=== PATIENT | male | born 1960 | race Caucasian/White ===

== ENCOUNTER 2019-03-02 01:31 | Inpatient (IN) | payer OTHER ==
[~2019-03-02] VITALS: Ht 172.7 cm; Wt 63.7 kg
--- NOTE | 2019-03-02 01:47 | PHYS DOC ---
Adult General Chief Complaint Chief Complaint: CHEST PAIN HPI HPI Patient is a 58-year-old male who presents with complaint of chest pain that started a little over 30 minutes prior to his arrival. Patient states that he was sitting down watching TV with onset of pain. He states the pain was primarily in the center of his chest and radiated to his left axilla and down his arm. He states he became a little bit nauseated and very diaphoretic. He states that at its worst the pain was an 8 out of 10. He states that currently the pain is about a 3 or 4 out of 10. He is not aware of any exacerbating factors and denies alleviating factors. Patient denies any cardiac history but does admit to family history of heart disease. Patient does indicate that he has had numerous episodes that have been much more mild in the past, making it difficult for him to sleep at night. He states that those episodes usually will clear up spontaneously within just a few minutes. Tonight was much more severe.[] Review of Systems Review of Systems Constitutional: Denies fever or chills [] Respiratory: Denies cough or shortness of breath [] Cardiovascular: No additional information not addressed in HPI [] GI: Denies abdominal pain, vomiting or diarrhea [] Musculoskeletal: Denies back pain or joint pain [] Integument: Denies rash or skin lesions [] Neurologic: Denies headache, focal weakness or sensory changes [] All other systems were reviewed and found to be within normal limits, except as documented in this note. Current Medications Current Medications Current Medications Medications (Trade) Dose Ordered Sig/Tobias Start Time Stop Time Status Last Admin Dose Admin Aspirin (Children'S Aspirin) 324 mg 1X ONCE 03/02/19 02:15 03/02/19 02:16 DC 03/02/19 02:20 324 MG Nitroglycerin (Nitrostat) 0.4 mg PRN Q5MIN PRN 03/02/19 02:00 03/03/19 01:59 03/02/19 02:21 0.4 MG Sodium Chloride 1,000 ml @ 1,000 mls/hr Q1H 03/02/19 02:00 03/02/19 02:59 DC 03/02/19 02:21 1,000 MLS/HR Allergies Allergies Allergies Coded Allergies Type Severity Reaction Last Updated Verified No Known Drug Allergies 03/02/19 No Physical Exam Physical Exam Constitutional: Well developed, well nourished, no acute distress, non-toxic appearance. [] HENT: Normocephalic, atraumatic, bilateral external ears normal, oropharynx moist, no oral exudates, nose normal. [] Eyes: PERRLA, EOMI, conjunctiva normal, no discharge. [] Neck: Normal range of motion, no tenderness, supple, no stridor. [] Cardiovascular: Regular rate and rhythm[] Lungs & Thorax: Bilateral breath sounds clear to auscultation [] Abdomen: Bowel sounds normal, soft. [] Skin: Warm, dry, no erythema, no rash. [] Extremities: No tenderness, no cyanosis, no clubbing, ROM intact, no edema. [] Neurologic: Alert and oriented X 3, no focal deficits noted. [] Current Patient Data Vital Signs Vital Signs Date Time Temp Pulse Resp B/P (MAP) Pulse Ox O2 Delivery O2 Flow Rate FiO2 03/02/19 02:21 59 164/81 03/02/19 01:57 98.0 16 100 Room Air 98.0 Lab Values Laboratory Tests Test 03/02/19 01:45 White Blood Count 11.8 x10^3/uL (4.0-11.0) H Red Blood Count 5.10 x10^6/uL (4.30-5.70) Hemoglobin 16.1 g/dL (13.0-17.5) Hematocrit 47.8 % (39.0-53.0) Mean Corpuscular Volume 94 fL (79-100) Mean Corpuscular Hemoglobin 32 pg (25-35) Mean Corpuscular Hemoglobin Concent 34 g/dL (31-37) Red Cell Distribution Width 13.4 % (11.5-14.5) Platelet Count 170 x10^3/uL (140-400) Neutrophils (%) (Auto) 61 % (31-73) Lymphocytes (%) (Auto) 30 % (24-48) Monocytes (%) (Auto) 7 % (0-9) Eosinophils (%) (Auto) 2 % (0-3) Basophils (%) (Auto) 1 % (0-3) Neutrophils # (Auto) 7.1 x10^3/uL (1.8-7.7) Lymphocytes # (Auto) 3.5 x10^3/uL (1.0-4.8) Monocytes # (Auto) 0.8 x10^3/uL (0.0-1.1) Eosinophils # (Auto) 0.2 x10^3/uL (0.0-0.7) Basophils # (Auto) 0.1 x10^3/uL (0.0-0.2) Sodium Level 148 mmol/L (136-145) H Potassium Level 4.1 mmol/L (3.5-5.1) Chloride Level 108 mmol/L (98-107) H Carbon Dioxide Level 27 mmol/L (21-32) Anion Gap 13 (6-14) Blood Urea Nitrogen 24 mg/dL (8-26) Creatinine 1.9 mg/dL (0.7-1.3) H Estimated GFR (Cockcroft-Gault) 36.5 BUN/Creatinine Ratio 13 (6-20) Glucose Level 215 mg/dL (70-99) H Calcium Level 9.1 mg/dL (8.5-10.1) Magnesium Level 1.8 mg/dL (1.8-2.4) Total Bilirubin 0.4 mg/dL (0.2-1.0) Aspartate Amino Transferase (AST) 13 U/L (15-37) L Alanine Aminotransferase (ALT) 23 U/L (16-63) Alkaline Phosphatase 84 U/L (46-116) Troponin I Quantitative < 0.017 ng/mL (0.000-0.055) WT-Kgk-M-Type Natriuretic Peptide 316 pg/mL (0-124) H Total Protein 6.9 g/dL (6.4-8.2) Albumin 3.7 g/dL (3.4-5.0) Albumin/Globulin Ratio 1.2 (1.0-1.7) Lipase 141 U/L (73-393) Laboratory Tests 03/02/19 01:45 Laboratory Tests 03/02/19 01:45 EKG EKG [] Interpretation Time: EKG demonstrates normal sinus rhythm with rate of 64. Radiology/Procedures Radiology/Procedures [] Course & Med Decision Making Course & Med Decision Making Pertinent Labs and Imaging studies reviewed. (See chart for details) [] Dragon Disclaimer Dragon Disclaimer This electronic medical record was generated, in whole or in part, using a voice recognition dictation system. Departure Departure Impression: Primary Impression: Unstable angina Disposition: ADMITTED INPATIENT Admitting Physician: DEYVI Condition: IMPROVED DENNIS CARRANZA Jr. DO Mar 02, 2019 01:47
[2019-03-02] MEDS ORDERED: NITROGLYCERIN SUBLINGUAL 0.4 MG BOTTLE OF 25. SL PRN ×2 (02:00→03:15)
[2019-03-02] MEDS ORDERED: IV NORMAL SALINE 1000ML BAG 1,000 ML IV SCH (02:00)
[2019-03-02 02:05] LABS: BASO # 0.1 x10^3/uL (0.0-0.2); BASO % 1 % (0-3); EOS # 0.2 x10^3/uL (0.0-0.7); EOS % 2 % (0-3); HEMATOCRIT 47.8 % (39.0-53.0); HEMOGLOBIN 16.1 g/dL (13.0-17.5); LYMPH # 3.5 x10^3/uL (1.0-4.8); LYMPH % 30 % (24-48); MEAN CORPUSCULAR HEMOGLOBIN 32 pg (25-35); MEAN CORPUSCULAR HGB CONC 34 g/dL (31-37); MEAN CORPUSCULAR VOLUME 94 fL (79-100); MONO # 0.8 x10^3/uL (0.0-1.1); MONO % 7 % (0-9); NEUT # 7.1 x10^3/uL (1.8-7.7); NEUT % 61 % (31-73); PLATELET COUNT 170 x10^3/uL (140-400); RED CELL DISTRIBUTION WIDTH 13.4 % (11.5-14.5); WHITE BLOOD COUNT 11.8 x10^3/uL (4.0-11.0)
[2019-03-02] MEDS ORDERED: ASPIRIN CHEWABLE 81 MG TABLET. PO ONE (02:15)
[2019-03-02 02:32] LABS: CALCIUM 9.1 mg/dL (8.5-10.1); CREATININE 1.9 mg/dL (0.7-1.3); GFR 36.5; POTASSIUM 4.1 mmol/L (3.5-5.1)
[2019-03-02 02:38] LABS: ALBUMIN 3.7 g/dL (3.4-5.0); ALBUMIN/GLOBULIN RATIO 1.2 (1.0-1.7); MAGNESIUM 1.8 mg/dL (1.8-2.4); TOTAL BILIRUBIN 0.4 mg/dL (0.2-1.0); TOTAL PROTEIN 6.9 g/dL (6.4-8.2)
[2019-03-02] MEDS ORDERED: ONDANSETRON PF 4 MG/2 ML VIAL. IV PRN (03:15)
[2019-03-02] MEDS ORDERED: MORPHINE SULFATE 2 MG/ML VIAL. IV PRN (03:15)
[2019-03-02] MEDS: IV NORMAL SALINE 1000ML BAG 1,000 ML IV SCH ×3 (03:15→19:15)
[2019-03-02 04:00] VITALS: BP 147/66
[2019-03-02 07:00] VITALS: BP 134/74
--- NOTE | 2019-03-02 07:35 | RAD ---
AP chest. HISTORY: Chest pain AP view was taken of the chest. Lungs are clear. Heart is normal in size. There is no pleural effusion. IMPRESSION: 1. No acute chest disease. Electronically signed by: Jose Miguel Fang MD (03/02/2019 7:32 AM) [facility]
--- NOTE | 2019-03-02 08:18 | PDOC1 ---
History and Physical Date of Admission Date of Admission DATE: 03/02/19 TIME: 08:15 Identification/Chief Complaint Chief Complaint Chest pain Source Source: Patient History of Present Illness History of Present Illness Mr Blount is a 58-year-old male w/ PMHx smoker, prediabetes, HTN who presents with complaint of chest pain that started a little over 30 minutes prior to his arrival. Patient states that he was sitting down watching TV with onset of pain. He states the pain was primarily in the center of his chest and radiated to his left axilla and down his arm. He states he became a little bit nauseated and very diaphoretic. He states that at its worst the pain was an 8 out of 10. He states that currently the pain is about a 3 or 4 out of 10. He is not aware of any exacerbating factors and denies alleviating factors. Patient denies any cardiac history but does admit to family history of heart disease. Patient does indicate that he has had numerous episodes that have been much more mild in the past, making it difficult for him to sleep at night. He states that those episodes usually will clear up spontaneously within just a few minutes. Last night was much more severe and dissimilar to his prior bouts of dyspepsia. CXR clear, EKG NSR with no concerning ST segment changes. Cr 1.9. WBC 11.8. Glucose 215, initial troponin negative He saw his PCP, had CXR and EKG, treatment for GERD and planned for possible stress testing on an outpatient basis in the near future. He was started on metformin 1.5 weeks ago for prediabetes and he has stopped it as he thought his symptoms were related to metformin use. He does not currently have any chest pain. 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 He did have a mother with CAD and a maternal cousin who is younger who just had stent placement. Past Medical History Cardiovascular: HTN Pulmonary: No pertinent hx GI: No pertinent hx Heme/Onc: No pertinent hx Hepatobiliary: No pertinent hx Psych: No pertinent hx Rheumatologic: No pertinent hx Infectious disease: No pertinent hx ENT: No pertinent hx Renal/: No pertinent hx Endocrine: Other (Prediabetes) Dermatology: No pertinent hx Past Surgical History Past Surgical History: No pertinent history Family History Family History: Coronary Artery Disease Current Problem List Problem List Problems Medical Problems: (1) Unstable angina Status: Acute Current Medications Current Medications Current Medications Aspirin (Children'S Aspirin) 324 mg 1X ONCE PO Last administered on 03/02/19at 02:20; Start 03/02/19 at 02:15; Stop 03/02/19 at 02:16; Status DC Nitroglycerin (Nitrostat) 0.4 mg PRN Q5MIN PRN SL CP RATING > 1/10 Last administered on 03/02/19at 02:21; Start 03/02/19 at 02:00; Stop 03/03/19 at 01:59 Sodium Chloride 1,000 ml @ 1,000 mls/hr Q1H IV Last administered on 03/02/19at 02:21; Start 03/02/19 at 02:00; Stop 03/02/19 at 02:59; Status DC Ondansetron HCl (Zofran) 4 mg PRN Q8HRS PRN IV NAUSEA/VOMITING; Start 03/02/19 at 03:15; Stop 03/03/19 at 03:14 Morphine Sulfate (Morphine Sulfate) 2 mg PRN Q2HR PRN IV PAIN; Start 03/02/19 at 03:15; Stop 03/03/19 at 03:14 Sodium Chloride 1,000 ml @ 125 mls/hr Q8H IV ; Start 03/02/19 at 03:15; Stop 03/03/19 at 03:14 Nitroglycerin (Nitrostat) 0.4 mg PRN Q5MIN PRN SL CHEST PAIN; Start 03/02/19 at 03:15; Stop 03/03/19 at 03:14 Allergies Allergies: Coded Allergies: No Known Drug Allergies (Unverified , 03/02/19) ROS General: No: Chills, Night Sweats, Fatigue, Malaise, Appetite, Other PSYCHOLOGICAL ROS: No: Anxiety, Behavioral Disorder, Concentration difficultie, Decreased libido, Depression, Disorientation, Hallucinations, Hostility, Irritablity, Memory difficulties, Mood Swings, Obsessive thoughts, Physical abuse, Sexual abuse, Sleep disturbances, Suicidal ideation, Other Eyes: No Blurry vision, No Decreased vision, No Double vision, No Dry eyes, No Excessive tearing, No Eye Pain, No Itchy Eyes, No Loss of vision, No Photophobia, No Scotomata, No Uses contacts, No Uses glasses, No Other HEENT: No: Heacaches, Visual Changes, Hearing change, Nasal congestion, Nasal discharge, Oral lesions, Sinus pain, Sore Throat, Epistaxis, Sneezing, Snoring, Tinnitus, Vertigo, Vocal changes, Other ALLERGY AND IMMUNOLOGY: No: Hives, Insect Bite Sensitivity, Itchy/Watery Eyes, Nasal Congestion, Post Nasal Drip, Seasonal Allergies, Other Hematological and Lymphatic: No: Bleeding Problems, Blood Clots, Blood Transfusions, Brusing, Night Sweats, Pallor, Swollen Lymph Nodes, Other ENDOCRINE: No: Breast Changes, Galactorrhea, Hair Pattern Changes, Hot Flashes, Malaise/lethargy, Mood Swings, Palpitations, Polydipsia/polyuria, Skin Changes, Temperature Intolerance, Unexpected Weight Changes, Other Breast: No New/Changing Breast Lumps, No Nipple changes, No Nipple discharge, No Other Respiratory: No: Cough, Hemoptysis, Orthopnea, Pleuritic Pain, Shortness of breath, SOB with excertion, Sputum Changes, Stridor, Tachypnea, Wheezing, Other Cardiovascular: yes Chest Pain, yes Palpitations; No Orthopnea, No Paroxysmal Noc. Dyspnea, No Edema, No Lt Headedness, No Other Gastrointestinal: No Nausea, No Vomiting, No Abdominal Pain, No Diarrhea, No Constipation, No Melena, No Hematochezia, No Other Genitourinary: No Dysuria, No Frequency, No Incontinence, No Hematuria, No Retention, No Discharge, No Urgency, No Pain, No Flank Pain, No Other, No , No , No , No , No , No , No Musculoskeletal: No Gait Disturbance, No Joint Pain, No Joint Stiffness, No Joint Swelling, No Muscle Pain, No Muscular Weakness, No Pain In:, No Swelling In:, No Other Neurological: No Behavorial Changes, No Bowel/Bladder ControlChng, No Confusion, No Dizziness, No Gait Disturbance, No Headaches, No Impaired Coord/balance, No Memory Loss, No Numbness/Tingling, No Seizures, No Speech Problems, No Tremors, No Visual Changes, No Weakness, No Other Skin: No Dry Skin, No Eczema, No Hair Changes, No Lumps, No Mole Changes, No Mottling, No Nail Changes, No Pruritus, No Rash, No Skin Lesion Changes, No Other, No Acne Physical Exam General: Alert, Oriented X3, Cooperative, No acute distress HEENT: Atraumatic, PERRLA, EOMI, Mucous membr. moist/pink Lungs: Clear to auscultation, Normal air movement Abdomen: Normal bowel sounds, Soft, No tenderness, No hepatosplenomegaly, No masses Extremities: No clubbing, No cyanosis, No edema, Normal pulses, No tenderness/swelling Skin: No rashes, No breakdown, No significant lesion Neuro: Normal gait, Normal speech, Strength at 5/5 X4 ext, Normal tone, Sensation intact, Cranial nerves 3-12 NL, Reflexes 2+ Psych/Mental Status: Mental status NL, Mood NL Vitals Vitals Vital Signs Date Time Temp Pulse Resp B/P (MAP) Pulse Ox O2 Delivery O2 Flow Rate FiO2 03/02/19 07:00 98.4 53 18 134/74 (94) 97 Room Air 98.4 Labs Labs Laboratory Tests Test 03/02/19 01:45 03/02/19 06:00 03/02/19 07:45 White Blood Count 11.8 x10^3/uL (4.0-11.0) Red Blood Count 5.10 x10^6/uL (4.30-5.70) Hemoglobin 16.1 g/dL (13.0-17.5) Hematocrit 47.8 % (39.0-53.0) Mean Corpuscular Volume 94 fL (79-100) Mean Corpuscular Hemoglobin 32 pg (25-35) Mean Corpuscular Hemoglobin Concent 34 g/dL (31-37) Red Cell Distribution Width 13.4 % (11.5-14.5) Platelet Count 170 x10^3/uL (140-400) Neutrophils (%) (Auto) 61 % (31-73) Lymphocytes (%) (Auto) 30 % (24-48) Monocytes (%) (Auto) 7 % (0-9) Eosinophils (%) (Auto) 2 % (0-3) Basophils (%) (Auto) 1 % (0-3) Neutrophils # (Auto) 7.1 x10^3/uL (1.8-7.7) Lymphocytes # (Auto) 3.5 x10^3/uL (1.0-4.8) Monocytes # (Auto) 0.8 x10^3/uL (0.0-1.1) Eosinophils # (Auto) 0.2 x10^3/uL (0.0-0.7) Basophils # (Auto) 0.1 x10^3/uL (0.0-0.2) Sodium Level 148 mmol/L (136-145) Potassium Level 4.1 mmol/L (3.5-5.1) Chloride Level 108 mmol/L (98-107) Carbon Dioxide Level 27 mmol/L (21-32) Anion Gap 13 (6-14) Blood Urea Nitrogen 24 mg/dL (8-26) Creatinine 1.9 mg/dL (0.7-1.3) Estimated GFR (Cockcroft-Gault) 36.5 BUN/Creatinine Ratio 13 (6-20) Glucose Level 215 mg/dL (70-99) Calcium Level 9.1 mg/dL (8.5-10.1) Magnesium Level 1.8 mg/dL (1.8-2.4) Total Bilirubin 0.4 mg/dL (0.2-1.0) Aspartate Amino Transf (AST/SGOT) 13 U/L (15-37) Alanine Aminotransferase (ALT/SGPT) 23 U/L (16-63) Alkaline Phosphatase 84 U/L (46-116) Troponin I Quantitative < 0.017 ng/mL (0.000-0.055) 0.055 ng/mL (0.000-0.055) XX-Moi-I-Type Natriuretic Peptide 316 pg/mL (0-124) Total Protein 6.9 g/dL (6.4-8.2) Albumin 3.7 g/dL (3.4-5.0) Albumin/Globulin Ratio 1.2 (1.0-1.7) Lipase 141 U/L (73-393) Glucose (Fingerstick) 120 mg/dL (70-99) Laboratory Tests Test 03/02/19 01:45 03/02/19 06:00 03/02/19 07:45 White Blood Count 11.8 x10^3/uL (4.0-11.0) Red Blood Count 5.10 x10^6/uL (4.30-5.70) Hemoglobin 16.1 g/dL (13.0-17.5) Hematocrit 47.8 % (39.0-53.0) Mean Corpuscular Volume 94 fL (79-100) Mean Corpuscular Hemoglobin 32 pg (25-35) Mean Corpuscular Hemoglobin Concent 34 g/dL (31-37) Red Cell Distribution Width 13.4 % (11.5-14.5) Platelet Count 170 x10^3/uL (140-400) Neutrophils (%) (Auto) 61 % (31-73) Lymphocytes (%) (Auto) 30 % (24-48) Monocytes (%) (Auto) 7 % (0-9) Eosinophils (%) (Auto) 2 % (0-3) Basophils (%) (Auto) 1 % (0-3) Neutrophils # (Auto) 7.1 x10^3/uL (1.8-7.7) Lymphocytes # (Auto) 3.5 x10^3/uL (1.0-4.8) Monocytes # (Auto) 0.8 x10^3/uL (0.0-1.1) Eosinophils # (Auto) 0.2 x10^3/uL (0.0-0.7) Basophils # (Auto) 0.1 x10^3/uL (0.0-0.2) Sodium Level 148 mmol/L (136-145) Potassium Level 4.1 mmol/L (3.5-5.1) Chloride Level 108 mmol/L (98-107) Carbon Dioxide Level 27 mmol/L (21-32) Anion Gap 13 (6-14) Blood Urea Nitrogen 24 mg/dL (8-26) Creatinine 1.9 mg/dL (0.7-1.3) Estimated GFR (Cockcroft-Gault) 36.5 BUN/Creatinine Ratio 13 (6-20) Glucose Level 215 mg/dL (70-99) Calcium Level 9.1 mg/dL (8.5-10.1) Magnesium Level 1.8 mg/dL (1.8-2.4) Total Bilirubin 0.4 mg/dL (0.2-1.0) Aspartate Amino Transf (AST/SGOT) 13 U/L (15-37) Alanine Aminotransferase (ALT/SGPT) 23 U/L (16-63) Alkaline Phosphatase 84 U/L (46-116) Troponin I Quantitative < 0.017 ng/mL (0.000-0.055) 0.055 ng/mL (0.000-0.055) DH-Qjo-E-Type Natriuretic Peptide 316 pg/mL (0-124) Total Protein 6.9 g/dL (6.4-8.2) Albumin 3.7 g/dL (3.4-5.0) Albumin/Globulin Ratio 1.2 (1.0-1.7) Lipase 141 U/L (73-393) Glucose (Fingerstick) 120 mg/dL (70-99) Images Images CXR - No acute chest disease. VTE Prophylaxis Ordered VTE Prophylaxis Devices: Yes VTE Pharmacological Prophylaxi: No Assessment/Plan Assessment/Plan A/P: Chest pain - moderately high risk for unstable angina. Trend trops, NTG prn. ASA. consult cardiology to risk stratify stress testing vs angiography RUIZ - will hydrate. Likely vasomotor nephropathy from diarrhea from recent metformin exposure Hyperglycemia - prediabetes. Hold metformin for RUIZ Leukocytosis - likely reactive, will monitor Smoker - counseled on cessation, nicotine replacement offered Elevated BP - monitor FEN - Cardiac PPX - SCDs FULL CODE Inpatient for RUIZ with chest pain LAURA MCKEON MD Mar 02, 2019 08:18
[2019-03-02 09:08] LABS: CHOLESTEROL/HDL RATIO 5.1
[2019-03-02 11:00] VITALS: BP 113/57
--- NOTE | 2019-03-02 12:45 | CONS ---
DATE OF CONSULTATION: 03/02/2019 REASON FOR CONSULTATION: Chest pain. HISTORY OF PRESENT ILLNESS: The patient is a 58-year-old male with past medical history as noted below, who presents to the hospital in the setting of chest discomfort. He apparently was in his usual state of health and had some significant chest tightness for about 15-20 minutes and called 911 and presented to the ER. Even prior to receiving nitroglycerin in the ER, his chest pain had begun to subside. He apparently has been having intermittent episodes of chest pain with various activities and not necessarily related to exertion over the last several weeks. His primary care doctor felt that it may be gastroesophageal reflux disease versus possible ischemia and there was a plan for possible stress testing on an outpatient basis in the near future. 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 Intermittently, he does have some chest discomfort. At this present time, he denies any chest pain. He is resting comfortably in bed. PAST MEDICAL HISTORY: 1. Mild hypertension. 2. Tobacco abuse. 3. Prediabetes. 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 He smokes half pack a day. He has 1 daughter. He has a girlfriend as well. FAMILY HISTORY: No significant early atherosclerotic coronary artery disease. ALLERGIES: No known drug allergies. CURRENT CARDIOVASCULAR MEDICATIONS: None. REVIEW OF SYSTEMS: Negative for 10 out of 14 systems reviewed, unless otherwise mentioned above in HPI. PHYSICAL EXAMINATION: VITAL SIGNS: Afebrile, 46, 16, 113/57, 97% on room air. GENERAL: He is alert and oriented, no acute distress. HEAD AND NECK: Unremarkable. CARDIAC: Regular rate and rhythm without murmurs, rubs or gallops. LUNGS: Clear to auscultation. ABDOMEN: Soft, nontender. EXTREMITIES: No clubbing, cyanosis or edema. 2+ radial and dorsalis pedis pulses. No carotid bruits. NEUROLOGIC: No focal deficits. MUSCULOSKELETAL: No trauma. DIAGNOSTIC STUDIES: Triglycerides elevated, LDL 40, HDL 28. TSH is within normal limits. Cardiac enzymes are negative x 3. BNP is minimally elevated at 316. Chest x-ray is unremarkable. EKG demonstrates sinus rhythm with nonspecific ST-T wave changes. IMPRESSION: 1. Atypical chest pain, possible underlying unstable angina presentation at this time. 2. Mild hypertension. 3. Tobacco abuse. RECOMMENDATIONS: I had a long discussion with the patient regarding his multiple risk factors and presentation, which is concerning for unstable angina. We discussed the conservative versus aggressive approaches with stress testing versus cardiac catheterization. He will discuss with his family and make decisions further. If he chooses conservative management, we will continue aspirin, statin therapy and given his bradycardia, he will not be able to start on beta jaguar. We will send him home on nitroglycerin p.r.n. We will plan for an expedite stress test in the next 48-72 hours. If he were to choose cardiac catheterization, then we will plan for a cardiac catheterization tomorrow for evaluation of his unstable angina. Thank you for this consultation. SAM HYDE MD DR: PAM/abhay JOB#: [id number] / [id number]
--- NOTE | 2019-03-02 13:34 | EKG ---
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
--- NOTE | 2019-03-02 14:25 | EKG ---
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
[2019-03-02 15:00] VITALS: BP 127/59
[2019-03-02 19:40] VITALS: BP 134/63
[2019-03-02] MEDS ORDERED: METO50TA6 PO (21:54)
[2019-03-02] MEDS ORDERED: LISI1TAB5 PO (21:54)
[2019-03-02 23:15] VITALS: BP 118/59
[2019-03-03] VITALS (10 sets, daily range): BP systolic 134–177; BP diastolic 64–93
[2019-03-03] MEDS ORDERED: ASPIRIN CHEWABLE 81 MG TABLET. PO ONE (07:15)
[2019-03-03] MEDS ORDERED: NITROGLYCERIN SUBLINGUAL 0.4 MG BOTTLE OF 25. SL PRN (07:15)
--- NOTE | 2019-03-03 07:25 | EKG ---
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
[2019-03-03] MEDS ORDERED: IV NORMAL SALINE 500ML BAG 500 ML IV ONE (08:30)
[2019-03-03 09:10] LABS: CALCIUM 8.9 mg/dL (8.5-10.1); CREATININE 1.6 mg/dL (0.7-1.3); GFR 44.5; POTASSIUM 4.1 mmol/L (3.5-5.1)
[2019-03-03] MEDS ORDERED: LIDOCAINE 1% PF 2 ML VIAL. ONE (09:34)
[2019-03-03] MEDS ORDERED: IODIXANOL 320 MG/ML 100 ML VIAL. ONE (09:34)
[2019-03-03] MEDS ORDERED: fentaNYL PF VIAL 100 MCG/2 ML VIAL ONE (10:13)
[2019-03-03] MEDS ORDERED: VERAPAMIL 5 MG/2 ML VIAL. ONE (10:14)
[2019-03-03] MEDS ORDERED: MIDAZOLAM HCL/PF 2 MG/2 ML VIAL. ONE (10:14)
[2019-03-03] MEDS ORDERED: HEPARIN for IV BOLUS 10,000 UNIT/10 ML VIAL. ONE (10:14)
[2019-03-03] MEDS ORDERED: NITROGLYCERIN 200 MCG/2 ML SYRINGE FOR CATH/VASC LAB. ONE ×3 (10:15→10:57)
--- NOTE | 2019-03-03 10:21 | PDOC ---
MODERATE SEDATION ASSESSMENT RISKS/ALTERNATIVES Risks/Alternatives Risks and alternatives of this type of sedation and procedure discussed with: RISK/ALTERNATIVES: Patient H & P ON CHART H & P H & P on chart and reviewed for co-morbid conditions and appropriate labs. H&P ON CHART: Yes STATUS PREG STATUS ASSESSED: N/A MEDS/ALLERGIES REVIEWED Meds/Allergies Reviewed Medications and Allergies including time and route of recently administered narcotics and sedatives. MEDS/ALLERGIES REVIEWED: Yes ASA RATING ASA RATING: II AIRWAY ASSESSMENT Airway Assessment Airway patency, oral function limitations, presence of caps, crowns, dentures, partials, and ability to extend neck assessed. AIRWAY ASSESSMENT: Yes MALLAMPATI SCORE MALLAMPATI SCORE: II PRE-SEDATION ASSESSMENT PRE-SEDATION ASSESSMENT: Yes SAM HYDE MD Mar 03, 2019 10:20
[2019-03-03] MEDS ORDERED: BIVALIRUDIN 250 MG VIAL. IV ONE ×2 (10:34→11:15)
[2019-03-03] MEDS ORDERED: PRASUGREL 10 MG TABLET. ONE (11:04)
[2019-03-03] MEDS ORDERED: LIDOCAINE 1% PF 2 ML VIAL. INJ ONE (11:15)
[2019-03-03] MEDS ORDERED: MIDAZOLAM HCL/PF 2 MG/2 ML VIAL. IV ONE (11:15)
[2019-03-03] MEDS ORDERED: VERAPAMIL 5 MG/2 ML VIAL. IART ONE (11:15)
[2019-03-03] MEDS ORDERED: fentaNYL PF VIAL 100 MCG/2 ML VIAL IV ONE (11:15)
[2019-03-03] MEDS ORDERED: IODIXANOL 320 MG/ML 100 ML VIAL. IART ONE (11:15)
[2019-03-03] MEDS ORDERED: NITROGLYCERIN 200 MCG/2 ML SYRINGE FOR CATH/VASC LAB. IART ONE (11:15)
[2019-03-03] MEDS ORDERED: PRASUGREL 10 MG TABLET. PO ONE (11:15)
[2019-03-03] MEDS ORDERED: HEPARIN for IV BOLUS 10,000 UNIT/10 ML VIAL. IART ONE (11:15)
[2019-03-03] MEDS ORDERED: NITROGLYCERIN 200 MCG/2 ML SYRINGE FOR CATH/VASC LAB. ICAR ONE (11:15)
[2019-03-03] MEDS ORDERED: NICOTINE 21MG PATCH. TD PRN (13:30)
--- NOTE | 2019-03-03 13:42 | CARD ---
MR#: [id number] Date of Study: 03/03/2019 Ordering Physician: SAM ROSARIO, Referring Physician: KATIE PAN, Tech: RT Niels (R) APPROVED REPORT Technologist: Graciela Harper RT (R) LUCA Nurse: Lorin Lawson R.N. Procedure(s) performed: fluoro time:8.0 min dose:198 mGy DAP: 89 Gycm2 Mod Sed: 68 min LHC, Coronary angiography PCI Of the LAD IVUS of the LAD HISTORY The patient is a 58 year-old male with a history of : tobacco history() , hypertension. INDICATION The indication(s) include : unstable angina . CSHA Clinical Frailty Scale [facility] Clinical Frailty Scale: Managing Well Heart Failure Heart Failure: No If Yes, Newly Diagnosed: No PROCEDURE NARRATIVE INFORMED CONSENT: After explaining the risks and benefits of the procedure and alternatives, informed consent was obtained. The patient was brought electively to the cardiac catheterization lab. A timeout was performed confi rming the patient's name, date of , procedure, and site of procedure. All necessary personnel w ere wearing the appropriate protective equipment and radiation monitor devices. (See nursing notes for medications administered). ACCESS: The right wrist was sterilely prepped and draped in the usual fashion. The right wrist was infiltrat ed with 1 mL of 2% lidocaine for subcutaneous anesthesia. A 6 Arabic Terumo glide sheath was inserte d into the right radial artery without difficulty. CORONARY ANGIOGRAPHY: Right and left coronary angiography was performed using a 6Fr TIG 4.0 catheter. Left ventricular en d diastolic pressure was obtained with a pigtail catheter and pullback was performed after left ventr iculography. All catheter exchanges and advancements were performed over a guidewire. FINDINGS: HEMODYNAMICS: LVEDP 14 mm Hg No gradient on LV to aortic pullback. AO: 128/78 LEFT VENTRICULOGRAM: Deferred due to CKD CORONARY ANGIOGRAPHY: LM is a large caliber vessel with normal angiographic appearance. LAD is a large caliber vessel with a proximal 80% stenosis with partial plaque rupture. Ramus is a moderate caliber vessel with mild luminal irregularities. LCx is a large caliber non-dominant vessel with normal angiographic appearance. LPL1 is a moderate caliber vessel with normal angiographic appearance. RCA is a small caliber dominant vessel with a long diffuse calcified 70% stenosis. Cannot rule out ol d healed dissection. RPDA is a small caliber vessel with mild luminal irregularities. INTERVENTIONAL TECHNIQUE: Bivalirudin was used for an to regulation. Through a 6 Arabic EBU 3.5 guide catheter a 0.014 inch pro -water wire was advanced to the distal LAD. Balloon angioplasty of the LAD was performed with a 3.0 x 15 mm trek balloon and the lesion was stented with a 4.0 x 23 mm Alpine drug-eluting stent. The sten t was postdilated with a 4 mm noncompliant balloon at 14-18 breana. Post PCI ivus revealed excellent sandra nt expansion with PEREZ-3 flow on angiography. There were no acute guide or wire-related competitions. The patient received 60 mg of Effient at case completion CLOSURE: At case completion the right radial sheath was removed and a Terumo radial band was applied with 13 m l of air. COMPLICATIONS: The patient tolerated the procedure well and there were no immediate complications. PEREZ Flow PEREZ Flow (Pre-Intervention): PEREZ-3 PEREZ Flow (Post-Intervention): PEREZ-3 Conclusion 1. Two-vessel coronary artery disease. 2. Successful IVUS guided PCI of the proximal LAD with implantation of an Alpine 4.0/23 KRISTIN, post-dil ated with 4.0 mm NC balloon at 14 breana. Recommendations ASA 81mg daily Prasugrel 10mg daily High dose statin therapy Consider staged PCI of the RCA (due to CKD) if any significant pain/symptoms. Signed by : Sam Rosario, Electronically Approved : 03/03/2019 13:42:03
--- NOTE | 2019-03-03 16:00 | NUR ---
SS following for discharge planning. SS reviewed pt chart. Pt is from home with spouse and is currently on room air. No discharge needs noted at this time. SS will continue to follow for discharge planning.
[2019-03-03] MEDS ORDERED: ATORVASTATIN CALCIUM 40 MG TABLET. PO SCH (23:00)
[2019-03-04 03:35] VITALS: BP 151/73
[2019-03-04 07:00] VITALS: BP_SYST 133; BP_SYST 166; BP_DIAS 73; BP_DIAS 79
[2019-03-04] MEDS ORDERED: ASPIRIN ENTERIC COATED 81 MG TABLET.DR. PO SCH (08:00)
[2019-03-04] MEDS ORDERED: PRASUGREL 10 MG TABLET. PO SCH (08:00)
--- NOTE | 2019-03-04 09:08 | CARD ---
MR#: [id number] Date of Study: 03/04/2019 Ordering Physician: FLORENTINO FLORES, Referring Physician: KATIE PAN Tech: Lien Hernández [facility] APPROVED REPORT EXAM: Two-dimensional and M-mode echocardiogram with Doppler and color Doppler. Other Information Quality : Good INDICATION Unstable Angina 2D DIMENSIONS RVDd2.8 (2.9-3.5cm)Left Atrium(2D)3.9 (1.6-4.0cm) IVSd0.8 (0.7-1.1cm)Aortic Root(2D)3.4 (2.0-3.7cm) LVDd4.5 (3.9-5.9cm)LVOT Diameter2.1 (1.8-2.4cm) PWd0.8 (0.7-1.1cm)LVDs3.0 (2.5-4.0cm) FS (%) 33.6 %SV58.1 ml LVEF(%)62.5 (>50%) Aortic Valve AoV Peak Marko.127.0cm/sAoV VTI26.0cm AO Peak GR.6.5mmHgLVOT VTI 22.80cm AO Mean GR.3mmHgAVA (VTI)3.00cm2 Mitral Valve MV E Atqvpgpk25.3cm/sMV DECEL [id number] MV A Dgnnopne93.8cm/sE/A Ratio1.3 TDI Lateral E' P. V7.02cm/sMedial E' P. V2.25cm/s E/Lateral E'11.0E/Medial E'34.4 Pulmonary Vein S1 Fzkgngkm14.0cm/sS2 Ebcexvxk67.58cm/s D2 Ajputzat47.6cm/s LEFT VENTRICLE The left ventricle is normal size. There is normal left ventricular wall thickness. The left ventricu lar systolic function is normal and the ejection fraction is within normal range. The Ejection Fracti on is 55-60%. There is normal LV segmental wall motion. Transmitral Doppler flow pattern is Grade I-a bnormal relaxation pattern. RIGHT VENTRICLE The right ventricle is normal size. The right ventricular systolic function is normal. ATRIA The left atrium size is normal. The right atrium size is normal. The interatrial septum is intact wit h no evidence for an atrial septal defect or patent foramen ovale as noted on 2-D or Doppler imaging. AORTIC VALVE The aortic valve is calcified but opens well. Doppler and Color Flow revealed no significant aortic r egurgitation. There is no significant aortic valvular stenosis. MITRAL VALVE The mitral valve is calcified but opens well. Mitral annular calcification is mild. There is no evide nce of mitral valve prolapse. There is no mitral valve stenosis. Doppler and Color-flow revealed trac e mitral regurgitation. TRICUSPID VALVE The tricuspid valve is normal in structure and function. Doppler and Color Flow revealed physiologica l tricuspid regurgitation. There is no tricuspid valve stenosis. PULMONIC VALVE The pulmonary valve is normal in structure and function. Doppler and Color Flow revealed trace to mil d pulmonic valvular regurgitation. There is no pulmonic valvular stenosis. GREAT VESSELS The aortic root is normal in size. The ascending aorta is normal in size. The IVC is normal in size a nd collapses >50% with inspiration. PERICARDIAL EFFUSION There is no evidence of significant pericardial effusion. Critical Notification Critical Value: No <Conclusion> The left ventricular systolic function is normal and the ejection fraction is within normal range. Th e Ejection Fraction is 55-60%. There is normal LV segmental wall motion. Signed by : Tre Rosario, Electronically Approved : 03/04/2019 09:07:34
--- NOTE | 2019-03-04 09:35 | PDOC ---
PROGRESS NOTES Chief Complaint Chief Complaint LATE ENTRY, seen 7. Chest pain - unstable angina. angiography today RUIZ - vasomotor nephropathy from diarrhea Hyperglycemia - prediabetes. Hold metformin for RUIZ Leukocytosis - likely reactive, will monitor Smoker - counseled on cessation, nicotine replacement offered Elevated BP - monitor History of Present Illness History of Present Illness cath stent placed plan DC in AM Vitals Vitals Vital Signs Date Time Temp Pulse Resp B/P (MAP) Pulse Ox O2 Delivery O2 Flow Rate FiO2 03/04/19 08:00 Room Air 2.0 03/04/19 07:00 97.8 51 16 133/73 (93) 96 97.8 Physical Exam General: Alert, Oriented X3, Cooperative, No acute distress Abdomen: Normal bowel sounds, Soft, No tenderness, No hepatosplenomegaly, No masses Extremities: No clubbing, No cyanosis, No edema, Normal pulses, No tenderness/swelling Skin: No rashes, No breakdown, No significant lesion Labs LABS Laboratory Tests Test 03/03/19 12:04 03/03/19 16:58 03/03/19 20:53 03/04/19 07:37 Glucose (Fingerstick) 127 mg/dL (70-99) 106 mg/dL (70-99) 92 mg/dL (70-99) 96 mg/dL (70-99) Assessment and Plan Assessmemt and Plan Problems Medical Problems: (1) RUIZ (acute kidney injury) Status: Acute (2) HTN (hypertension) Status: Chronic (3) Prediabetes Status: Chronic (4) Unstable angina Status: Acute Comment Review of Relevant I have reviewed the following items kamryn (where applicable) has been applied. Labs Laboratory Tests Test 03/02/19 12:00 03/02/19 17:19 03/02/19 21:04 03/03/19 07:13 Glucose (Fingerstick) 94 mg/dL (70-99) 200 mg/dL (70-99) 89 mg/dL (70-99) 119 mg/dL (70-99) Test 03/03/19 08:40 03/03/19 12:04 03/03/19 16:58 03/03/19 20:53 Sodium Level 143 mmol/L (136-145) Potassium Level 4.1 mmol/L (3.5-5.1) Chloride Level 107 mmol/L (98-107) Carbon Dioxide Level 25 mmol/L (21-32) Anion Gap 11 (6-14) Blood Urea Nitrogen 20 mg/dL (8-26) Creatinine 1.6 mg/dL (0.7-1.3) Estimated GFR (Cockcroft-Gault) 44.5 Glucose Level 135 mg/dL (70-99) Calcium Level 8.9 mg/dL (8.5-10.1) Glucose (Fingerstick) 127 mg/dL (70-99) 106 mg/dL (70-99) 92 mg/dL (70-99) Test 03/04/19 07:37 Glucose (Fingerstick) 96 mg/dL (70-99) Laboratory Tests Test 03/03/19 12:04 03/03/19 16:58 03/03/19 20:53 03/04/19 07:37 Glucose (Fingerstick) 127 mg/dL (70-99) 106 mg/dL (70-99) 92 mg/dL (70-99) 96 mg/dL (70-99) Medications Current Medications Aspirin (Children'S Aspirin) 324 mg 1X ONCE PO Last administered on 03/02/19at 02:20; Start 03/02/19 at 02:15; Stop 03/02/19 at 02:16; Status DC Nitroglycerin (Nitrostat) 0.4 mg PRN Q5MIN PRN SL CP RATING > 1/10 Last administered on 03/02/19at 02:21; Start 03/02/19 at 02:00; Stop 03/02/19 at 12:40; Status DC Sodium Chloride 1,000 ml @ 1,000 mls/hr Q1H IV Last administered on 03/02/19at 02:21; Start 03/02/19 at 02:00; Stop 03/02/19 at 02:59; Status DC Ondansetron HCl (Zofran) 4 mg PRN Q8HRS PRN IV NAUSEA/VOMITING; Start 03/02/19 at 03:15; Stop 03/03/19 at 03:14; Status DC Morphine Sulfate (Morphine Sulfate) 2 mg PRN Q2HR PRN IV PAIN; Start 03/02/19 at 03:15; Stop 03/03/19 at 03:14; Status DC Sodium Chloride 1,000 ml @ 125 mls/hr Q8H IV ; Start 03/02/19 at 03:15; Stop 03/03/19 at 03:14; Status DC Nitroglycerin (Nitrostat) 0.4 mg PRN Q5MIN PRN SL CHEST PAIN; Start 03/02/19 at 03:15; Stop 03/03/19 at 03:14; Status DC Nitroglycerin (Nitrostat) 0.4 mg PRN Q5MIN PRN SL CHEST PAIN Last administered on 03/03/19at 07:40; Start 03/03/19 at 07:15 Aspirin (Children'S Aspirin) 324 mg 1X ONCE PO Last administered on 03/03/19at 07:32; Start 03/03/19 at 07:15; Stop 03/03/19 at 07:16; Status DC Sodium Chloride 500 ml @ 500 mls/hr 1X ONCE IV Last administered on 03/03/19at 08:30; Start 03/03/19 at 08:30; Stop 03/03/19 at 09:29; Status DC Iodixanol (Visipaque 320) 100 ml STK-MED ONCE .ROUTE ; Start 03/03/19 at 09:34; Stop 03/03/19 at 09:35; Status DC Lidocaine HCl (Xylocaine-Mpf 1% 2ml Vial) 2 ml STK-MED ONCE .ROUTE ; Start 03/03/19 at 09:34; Stop 03/03/19 at 09:35; Status DC Heparin Sodium/ Sodium Chloride 1,000 ml @ As Directed STK-MED ONCE .ROUTE ; Start 03/03/19 at 09:34; Stop 03/03/19 at 09:35; Status DC Fentanyl Citrate (Fentanyl 2ml Vial) 100 mcg STK-MED ONCE .ROUTE ; Start 03/03/19 at 10:13; Stop 03/03/19 at 10:14; Status DC Midazolam HCl (Versed) 2 mg STK-MED ONCE .ROUTE ; Start 03/03/19 at 10:14; Stop 03/03/19 at 10:15; Status DC Heparin Sodium (Porcine) (Heparin Sodium) 10,000 unit STK-MED ONCE .ROUTE ; Start 03/03/19 at 10:14; Stop 03/03/19 at 10:15; Status DC Verapamil HCl (Verapamil) 5 mg STK-MED ONCE .ROUTE ; Start 03/03/19 at 10:14; Stop 03/03/19 at 10:15; Status DC Nitroglycerin (Nitroglycerin) 200 mcg STK-MED ONCE .ROUTE ; Start 03/03/19 at 10:15; Stop 03/03/19 at 10:16; Status DC Nitroglycerin (Nitroglycerin) 200 mcg STK-MED ONCE .ROUTE ; Start 03/03/19 at 10:30; Stop 03/03/19 at 10:31; Status DC Bivalirudin (Angiomax) 250 mg STK-MED ONCE IV ; Start 03/03/19 at 10:34; Stop 03/03/19 at 10:35; Status DC Nitroglycerin (Nitroglycerin) 200 mcg STK-MED ONCE .ROUTE ; Start 03/03/19 at 10:57; Stop 03/03/19 at 10:58; Status DC Prasugrel (Effient) 10 mg STK-MED ONCE .ROUTE ; Start 03/03/19 at 11:04; Stop 03/03/19 at 11:05; Status DC Nitroglycerin (Nitroglycerin) 200 mcg 1X ONCE IART Last administered on 03/03/19at 11:22; Start 03/03/19 at 11:15; Stop 03/03/19 at 11:17; Status DC Verapamil HCl (Verapamil) 2.5 mg 1X ONCE IART Last administered on 03/03/19at 11:24; Start 03/03/19 at 11:15; Stop 03/03/19 at 11:17; Status DC Heparin Sodium (Porcine) (Heparin Sodium) 2,500 unit 1X ONCE IART Last administered on 03/03/19at 11:24; Start 03/03/19 at 11:15; Stop 03/03/19 at 11:17; Status DC Heparin Sodium/ Sodium Chloride (HEPARIN for ARTERIAL LINE FLUSH) 1,000 unit 1X ONCE IART Last administered on 03/03/19 11:22; Start 03/03/19 at 11:15; Stop 03/03/19 at 11:17; Status DC Midazolam HCl (Versed) 2 mg 1X ONCE IV Last administered on 03/03/19 11:23; Start 03/03/19 at 11:15; Stop 03/03/19 at 11:17; Status DC Fentanyl Citrate (Fentanyl 2ml Vial) 50 mcg 1X ONCE IV Last administered on 03/03/19 11:23; Start 03/03/19 at 11:15; Stop 03/03/19 at 11:17; Status DC Iodixanol (Visipaque 320) 100 ml 1X ONCE IART Last administered on 03/03/19at 1 1:25; Start 03/03/19 at 11:15; Stop 03/03/19 at 11:17; Status DC Bivalirudin (Angiomax) 250 mg 1X ONCE IV Last administered on 03/03/19 11:22; Start 03/03/19 at 11:15; Stop 03/03/19 at 11:17; Status DC Prasugrel (Effient) 60 mg 1X ONCE PO Last administered on 03/03/19 11:22; Start 03/03/19 at 11:15; Stop 03/03/19 at 11:17; Status DC Lidocaine HCl (Xylocaine-Mpf 1% 2ml Vial) 1 ml 1X ONCE INJ Last administered on 03/03/19 11:22; Start 03/03/19 at 11:15; Stop 03/03/19 at 11:17; Status DC Nitroglycerin (Nitroglycerin) 400 mcg 1X ONCE ICAR Last administered on 03/03/19 11:22; Start 03/03/19 at 11:15; Stop 03/03/19 at 11:17; Status DC Lorazepam (Ativan Inj) 1 mg PRN Q4HRS PRN IV ANXIETY / AGITATION; Start 03/03/19 at 13:30 Nicotine (Nicoderm Cq 21mg) 1 patch PRN DAILY PRN TD SMOKING CESSATION; Start 03/03/19 at 13:30 Aspirin (Ecotrin) 81 mg DAILYWBKFT PO Last administered on 03/04/19at 08:36; Start 03/04/19 at 08:00 Prasugrel (Effient) 10 mg DAILYWBKFT PO Last administered on 03/04/19 08:34; Start 03/04/19 at 08:00 Atorvastatin Calcium (Lipitor) 40 mg QHS PO Last administered on 03/04/19 01:45; Start 03/03/19 at 23:00 Active Scripts Active Reported Metoprolol Tartrate 50 Mg Tablet 50 Mg PO QHS Lisinopril-Hctz 20-12.5 Mg Tab (Lisinopril/Hydrochlorothiazide) 1 Each Tablet 2 Tab PO DAILY Vitals/I & O Vital Sign - Last 24 Hours 03/03/19 03/03/19 03/03/19 03/03/19 11:00 11:23 11:24 11:25 Temp 98.5 98.5 Pulse 54 48 48 Resp 22 17 17 B/P (MAP) 134/64 (87) Pulse Ox 96 96 O2 Delivery Room Air Nasal Cannula Nasal Cannula O2 Flow Rate 2.0 2.0 03/03/19 03/03/19 03/03/19 03/03/19 11:50 12:05 12:27 15:00 Temp 98.2 98.2 Pulse 65 65 65 56 Resp 20 20 20 16 B/P (MAP) 135/64 (87) 177/79 (111) 142/69 (93) 159/82 (107) Pulse Ox 98 O2 Delivery Room Air Room Air Room Air Nasal Cannula 03/03/19 03/03/19 03/03/19 03/04/19 19:30 20:00 23:10 03:35 Temp 98.3 98.3 98.3 98.3 98.3 98.3 Pulse 49 77 49 Resp 18 18 18 B/P (MAP) 153/77 (102) 154/93 (113) 151/73 (99) Pulse Ox 98 98 98 O2 Delivery Room Air Room Air Room Air Room Air 03/04/19 03/04/19 07:00 08:00 Temp 97.8 97.8 Pulse 51 Resp 16 B/P (MAP) 133/73 (93) Pulse Ox 96 O2 Delivery Room Air Room Air O2 Flow Rate 2.0 Intake and Output 03/03/19 03/03/19 03/04/19 15:00 23:00 07:00 Intake Total 300 ml 360 ml Output Total 3 ml 4 ml Balance 297 ml 356 ml TERESITA FLETCHER MD Mar 04, 2019 09:35
--- NOTE | 2019-03-04 10:21 | PDOC ---
FLORENTINO FLORES PROGRAM COORDINATOR EXECUTIVE EDUCATION 03/04/19 1021: CARDIO Progress Notes Date and Time Date of Service 03/04/2019 Time of Evaluation 1010 Subjective Subjective: No Chest Pain, No shortness of breath, No Palpitations Vitals Vitals Vital Signs Date Time Temp Pulse Resp B/P (MAP) Pulse Ox O2 Delivery O2 Flow Rate FiO2 03/04/19 08:00 Room Air 2.0 03/04/19 07:00 97.8 51 16 133/73 (93) 96 97.8 Weight Weight [ ] Input and Output Intake and Output Intake and Output 03/04/19 07:00 Intake Total 660 ml Output Total 7 ml Balance 653 ml Intake Oral 660 ml Output Urine Total 7 ml # Voids 4 Laboratory Labs Laboratory Tests Test 03/03/19 12:04 03/03/19 16:58 03/03/19 20:53 03/04/19 07:37 Glucose (Fingerstick) 127 mg/dL (70-99) 106 mg/dL (70-99) 92 mg/dL (70-99) 96 mg/dL (70-99) Physical Exam HEENT: Neck Supple W Full Motion Chest: Symmetric LUNGS: Clear to Auscultation Heart: S1S2, RRR (SR) Abdomen: Soft N/T Extremities: No Calf Tenderness Neurology: alert, oriented, follow commands Other Exams right wrist arteriotomy site intact, no erythema, swelling, neurovascular status to right hand intact. Assessment Assessment 1. Unstable angina: S/P PCI/KRISTIN to LAD. 2. Possible CKD: unknown baseline. 3. Suspect COPD with tobaccoism 4. HTN 5. HLP 6. Asymptomatic SB: episodes. No BB Recommendations 1. Consider staged PCI of the RCA (due to CKD) if any significant pain/symptoms. 2. ASA/effient. Statin, cardiac rehab. TTE, BMP 3. Hold lisinopril/HCTZ and will reeval renal function as an outpt. In the meantime hydralazine for HTN 4. Norvasc x1 5. Smoking cessation SAM HYDE MD 03/04/19 1702: CARDIO Progress Notes Plan Plan Pt. seen and examined. 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 No acute events. Ambulating well w/o any pain. Meds discussed with patient. Hold lisinopril given RUIZ. F/u in the office. Cardiac rehab referral made. Thanks FLORENTINO FLORES APRN Mar 04, 2019 10:21 SAM HYED MD Mar 04, 2019 17:02
[2019-03-04] MEDS ORDERED: amLODIPine BESYLATE 5 MG TABLET PO ONE (10:30)
[2019-03-04] MEDS ORDERED: METO25TA4 PO (10:58)
[2019-03-04] MEDS ORDERED: ASPI-612 PO (10:58)
[2019-03-04] MEDS ORDERED: PRAS10TA9 PO (10:58)
[2019-03-04] MEDS ORDERED: ATOR40TA59 PO (10:58)
[2019-03-04 11:00] VITALS: BP 146/76
[2019-03-04 11:17] LABS: CALCIUM 8.8 mg/dL (8.5-10.1); CREATININE 1.5 mg/dL (0.7-1.3); GFR 47.9; POTASSIUM 3.8 mmol/L (3.5-5.1)
[2019-03-04] MEDS ORDERED: HYDR-2868 PO (12:24)
--- NOTE | 2019-03-04 13:20 | NUR ---
PATIENT IS DISCHARGED TO HOME. POST CATH INSTRUCTIONS GIVEN. PIV AND HEART MONITOR OFF. ESCORTED PATIENT TO [facility] PER PATIENT AMBULATION INTO A PRIVATE VEHICLE.
== END 2019-03-04 13:20 | disposition home or self-care (01) | DRG 246 ==
LOC: ER 01:31 → 2 SOUTH 03:03
PROVIDERS: ADMIT Internal Medicine; ATTEND Internal Medicine
PROC: 027034Z Dilation of Coronary Artery, One Artery with Drug-eluting Intraluminal Device, Percutaneous Approach (ICD-10-PCS; principal; 2019-03-03)
PROC: 4A023N7 Measurement of Cardiac Sampling and Pressure, Left Heart, Percutaneous Approach (ICD-10-PCS; 2019-03-03)
PROC: B2111ZZ Fluoroscopy of Multiple Coronary Arteries using Low Osmolar Contrast (ICD-10-PCS; 2019-03-03)
PROC: B240ZZ3 Ultrasonography of Single Coronary Artery, Intravascular (ICD-10-PCS; 2019-03-03)
DX: I25.110 Atherosclerotic heart disease of native coronary artery with unstable angina pectoris (principal); N17.0 Acute kidney failure with tubular necrosis; I10 Essential (primary) hypertension; E78.5 Hyperlipidemia, unspecified; R73.03 Prediabetes; R19.7 Diarrhea, unspecified; K21.9 Gastro-esophageal reflux disease without esophagitis; D72.829 Elevated white blood cell count, unspecified; R00.1 Bradycardia, unspecified; F17.210 Nicotine dependence, cigarettes, uncomplicated; Z98.61 Coronary angioplasty status; Z82.49 Family history of ischemic heart disease and other diseases of the circulatory system; Z71.6 Tobacco abuse counseling; J44.9 Chronic obstructive pulmonary disease, unspecified
CPT/HCPCS: 36415; 37252; 71045; 80048; 80053; 80061; 82962; 83036; 83690; 83735; 83880; 84443; 84484; 85025; 92928; 93005; 93306; 93458; 99152; 99153; C1725; C1769; C1874; C1892; J0583; J1644; J2250; J3010; J3490; J7030; J7040; Q9967; 99285-25

== ENCOUNTER 2019-04-20 20:29 | Inpatient (IN) | payer OTHER ==
[~2019-04-20] VITALS: Ht 172.7 cm; Wt 73.5 kg
[~2019-04-20 20:29] MED LIST: ASPI-612 PO; ATOR40TA59 PO; HYDR-2868 PO; LISI1TAB19 PO; METO25TA4 PO; METO50TA6 PO; PRAS10TA9 PO
[2019-04-20 20:51] LABS: BASO # 0.1 x10^3/uL (0.0-0.2); BASO % 1 % (0-3); EOS # 0.3 x10^3/uL (0.0-0.7); EOS % 3 % (0-3); HEMATOCRIT 49.2 % (39.0-53.0); HEMOGLOBIN 16.6 g/dL (13.0-17.5); LYMPH # 2.8 x10^3/uL (1.0-4.8); LYMPH % 28 % (24-48); MEAN CORPUSCULAR HEMOGLOBIN 32 pg (25-35); MEAN CORPUSCULAR HGB CONC 34 g/dL (31-37); MEAN CORPUSCULAR VOLUME 94 fL (79-100); MONO # 0.9 x10^3/uL (0.0-1.1); MONO % 9 % (0-9); NEUT % 59 % (31-73); PLATELET COUNT 183 x10^3/uL (140-400); RED BLOOD COUNT 5.24 x10^6/uL (4.30-5.70); RED CELL DISTRIBUTION WIDTH 13.6 % (11.5-14.5); WHITE BLOOD COUNT 10.1 x10^3/uL (4.0-11.0)
[2019-04-20 20:59] LABS: PROTHROMBIN TIME PATIENT 11.9 SEC (11.7-14.0)
[2019-04-20] MEDS ORDERED: IV NORMAL SALINE 1000ML BAG 1,000 ML IV ONE (21:00)
[2019-04-20] MEDS ORDERED: FAMOTIDINE 20 MG/2 ML VIAL IVP ONE (21:00)
[2019-04-20] MEDS ORDERED: ASPIRIN 325 MG TABLET PO ONE (21:00)
[2019-04-20 21:01] LABS: CALCIUM 9.6 mg/dL (8.5-10.1); CREATININE 1.6 mg/dL (0.7-1.3); GFR 44.5; POTASSIUM 3.7 mmol/L (3.5-5.1)
--- NOTE | 2019-04-20 21:03 | RAD ---
CHEST PA LATERAL History: Chest pain Comparison: None. Findings: No consolidation or pleural effusion. Normal heart size. Calcified granulomas bilaterally, likely related to prior granulous disease. Impression: 1. No acute cardiopulmonary process. Electronically signed by: Jeff Arita DO (04/20/2019 9:00 PM) [facility]
[2019-04-20 21:08] LABS: ALBUMIN/GLOBULIN RATIO 1.1 (1.0-1.7); MAGNESIUM 1.7 mg/dL (1.8-2.4); TOTAL BILIRUBIN 0.3 mg/dL (0.2-1.0); TOTAL PROTEIN 7.6 g/dL (6.4-8.2)
[2019-04-20 21:16] LABS: CREATINE KINASE 60 U/L (39-308)
--- NOTE | 2019-04-20 21:36 | PHYS DOC ---
Past Medical History Past Medical History: CAD, Diabetes-Type II, High Cholesterol, Hypertension Additional Past Surgical Histo: STENT PLACED Smoking: Quit Greater Than 1 Year Alcohol Use: None Drug Use: None Adult General Chief Complaint Chief Complaint: CHEST PAIN HPI HPI 58-year-old male presents with 2 day history of generalized malaise. Reports some associated dyspnea with exertion and chest discomfort. Patient reports was recently seen by Dr. Rosario cardiology with stent placement. Patient reports he has healed run down and has also had some palpitations. Patient reports tonight symptoms became significantly worse after he got "angry" at a dog. Denies syncope. Denies nausea or vomiting. Denies trauma. Denies leg swelling or calf tenderness. Cardiac risk factors include high blood pressure, high cholesterol, diabetes, former smoker, and history of CAD. Denies family history or history of DVT/PE. Denies pleuritic pain. Review of Systems Review of Systems Constitutional: Denies fever or chills; reports malaise Eyes: Denies redness or eye pain HENT: Denies nasal congestion or sore throat Respiratory: Denies cough; reports dyspnea with exertion Cardiovascular: Reports chest pain and palpitations GI: Denies abdominal pain, nausea, or vomiting : Denies dysuria or hematuria Musculoskeletal: Denies back pain or joint pain Integument: Denies rash or skin lesions Neurologic: Denies headache, focal weakness or sensory changes Complete systems were reviewed and found to be within normal limits, except as documented in this note. Current Medications Current Medications Current Medications Medications (Trade) Dose Ordered Sig/[facility] Start Time Stop Time Status Last Admin Dose Admin Aspirin (Kelly Aspirin) 325 mg 1X ONCE 04/20/19 21:00 04/20/19 21:01 DC 04/20/19 21:12 325 MG Famotidine (Pepcid Vial) 20 mg 1X ONCE 04/20/19 21:00 04/20/19 21:01 DC 04/20/19 21:12 20 MG Sodium Chloride 1,000 ml @ 1,000 mls/hr 1X ONCE 04/20/19 21:00 04/20/19 21:59 04/20/19 21:12 1,000 MLS/HR Allergies Allergies Allergies Coded Allergies Type Severity Reaction Last Updated Verified No Known Drug Allergies 03/02/19 No Physical Exam Physical Exam Constitutional: Well developed, well nourished, no acute distress, non-toxic appearance HENT: Normocephalic, atraumatic, oropharynx moist Eyes: Conjunctiva normal, no discharge Neck: Normal range of motion, no tenderness, supple Cardiovascular: Heart rate normal, regular rhythm Lungs & Thorax: Bilateral breath sounds clear to auscultation, no wheezing Abdomen: Soft, no tenderness Skin: Warm, dry, no erythema, no rash Extremities: No tenderness, ROM intact, no edema Neurologic: Alert and oriented X 3, no focal deficits noted Psychologic: Affect normal, judgement normal Current Patient Data Vital Signs Vital Signs Date Time Temp Pulse Resp B/P (MAP) Pulse Ox O2 Delivery O2 Flow Rate FiO2 04/20/19 20:38 98.1 54 21 201/91 (127) 97 Room Air 98.1 Lab Values Laboratory Tests Test 04/20/19 20:38 White Blood Count 10.1 x10^3/uL (4.0-11.0) Red Blood Count 5.24 x10^6/uL (4.30-5.70) Hemoglobin 16.6 g/dL (13.0-17.5) Hematocrit 49.2 % (39.0-53.0) Mean Corpuscular Volume 94 fL (79-100) Mean Corpuscular Hemoglobin 32 pg (25-35) Mean Corpuscular Hemoglobin Concent 34 g/dL (31-37) Red Cell Distribution Width 13.6 % (11.5-14.5) Platelet Count 183 x10^3/uL (140-400) Neutrophils (%) (Auto) 59 % (31-73) Lymphocytes (%) (Auto) 28 % (24-48) Monocytes (%) (Auto) 9 % (0-9) Eosinophils (%) (Auto) 3 % (0-3) Basophils (%) (Auto) 1 % (0-3) Neutrophils # (Auto) 6.0 x10^3/uL (1.8-7.7) Lymphocytes # (Auto) 2.8 x10^3/uL (1.0-4.8) Monocytes # (Auto) 0.9 x10^3/uL (0.0-1.1) Eosinophils # (Auto) 0.3 x10^3/uL (0.0-0.7) Basophils # (Auto) 0.1 x10^3/uL (0.0-0.2) Prothrombin Time 11.9 SEC (11.7-14.0) Prothrombin Time INR 0.9 (0.8-1.1) Activated Partial Thromboplast Time 26 SEC (24-38) Sodium Level 144 mmol/L (136-145) Potassium Level 3.7 mmol/L (3.5-5.1) Chloride Level 108 mmol/L (98-107) H Carbon Dioxide Level 29 mmol/L (21-32) Anion Gap 7 (6-14) Blood Urea Nitrogen 22 mg/dL (8-26) Creatinine 1.6 mg/dL (0.7-1.3) H Estimated GFR (Cockcroft-Gault) 44.5 BUN/Creatinine Ratio 14 (6-20) Glucose Level 131 mg/dL (70-99) H Calcium Level 9.6 mg/dL (8.5-10.1) Magnesium Level 1.7 mg/dL (1.8-2.4) L Total Bilirubin 0.3 mg/dL (0.2-1.0) Aspartate Amino Transferase (AST) 18 U/L (15-37) Alanine Aminotransferase (ALT) 27 U/L (16-63) Alkaline Phosphatase 101 U/L (46-116) Creatine Kinase 60 U/L (39-308) Creatine Kinase MB (Mass) < 0.5 ng/mL (0.0-3.6) Creatine Kinase MB Relative Index % (0-4) Troponin I Quantitative < 0.017 ng/mL (0.000-0.055) IM-Dzu-T-Type Natriuretic Peptide 289 pg/mL (0-124) H Total Protein 7.6 g/dL (6.4-8.2) Albumin 4.0 g/dL (3.4-5.0) Albumin/Globulin Ratio 1.1 (1.0-1.7) Lipase 104 U/L (73-393) Laboratory Tests 04/20/19 20:38 Laboratory Tests 04/20/19 20:38 EKG EKG @ 2034 Sinus bradycardia at 52bpm, NO ST elevation, QRS 90ms. QT/QTc 412/385ms @ 2123 Sinus bradycardia at 49bpm, NO ST elevation, QRS 90ms, QT/QTc 428/389ms Radiology/Procedures Radiology/Procedures PROCEDURE: CHEST PA & LATERAL CHEST PA LATERAL History: Chest pain Comparison: None. Findings: No consolidation or pleural effusion. Normal heart size. Calcified granulomas bilaterally, likely related to prior granulous disease. Impression: 1. No acute cardiopulmonary process. Electronically signed by: Jeff Arita DO (04/20/2019 9:00 PM) [facility] Course & Med Decision Making Course & Med Decision Making Pertinent Labs and Imaging studies reviewed. (See chart for details) Patient presents with report of dyspnea with exertion and chest pain �3 days. EKG stable. Labs obtained and posted to chart. Initial troponin within normal limits. Magnesium replaced. Chest x-ray without acute process. Patient with significant cardiac risk factors. HEART score 4. Patient requiring observation admission for further evaluation and treatment. Discussed with Dr. Quiñones (hospitalist) who is in agreement with admission. Consult placed for Dr. Rosario (cardiology). Discussed findings and plan with patient and family, who acknowledge understanding and agreement. Dragon Disclaimer Dragon Disclaimer This electronic medical record was generated, in whole or in part, using a voice recognition dictation system. Departure Departure Impression: Primary Impression: Chest pain, rule out acute myocardial infarction Additional Impression: Hypomagnesemia Disposition: ADMITTED INPATIENT Admitting Physician: DEYVI (Ishmael) Condition: STABLE Referrals: GARRISON HILTON DO (PCP) The HEART Score for CP Pts HEART Score for Chest Pain: HEART Score for Chest Pain Response (Comments) Value History Moderately Suspicious 1 ECG Normal 0 Age >45 - < 65 1 Risk Factors >3 Risk Factors or Hx CAD 2 Troponin < Normal Limit 0 Total 4 Risk Factors: Risk Factors: DM, Current or recent (<one month) smoker, HTN, HLP, family history of CAD, obesity. Risk Scores: Score 0 - 3: 2.5% MACE over next 6 weeks - Discharge Home Score 4 - 6: 20.3% MACE over next 6 weeks - Admit for Clinical Observation Score 7 - 10: 72.7% MACE over next 6 weeks - Early Invasive Strategies Problem Qualifiers DONALD MUSA DO Apr 20, 2019 21:36
[2019-04-20] MEDS ORDERED: IV DEXTROSE 5% 250 ML BAG. IV PRN (21:45)
[2019-04-20] MEDS ORDERED: ONDANSETRON PF 4 MG/2 ML VIAL. IV PRN (21:45)
[2019-04-20] MEDS ORDERED: DEXTROSE 50% 25 GM / 50ML DISP.SYRIN. IV PRN (21:45)
[2019-04-20] MEDS ORDERED: fentaNYL PF VIAL 100 MCG/2 ML VIAL IV PRN (21:45)
[2019-04-20] MEDS ORDERED: MAGNESIUM SULFATE 2GM 50 ML IV ONE (22:00)
[2019-04-20] MEDS ORDERED: OMEG-131 PO (23:41)
[2019-04-20] MEDS ORDERED: CALC200T3 PO (23:41)
[2019-04-21] VITALS (18 sets, daily range): BP systolic 114–186; BP diastolic 56–114
[2019-04-21 05:07] LABS: CHOLESTEROL/HDL RATIO 2.1
--- NOTE | 2019-04-21 06:15 | EKG ---
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
--- NOTE | 2019-04-21 06:15 | EKG ---
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
[2019-04-21] MEDS: INSULIN LISPRO 300 UNITS/3 ML VIAL. SQ SCH ×3 (08:00→17:00)
--- NOTE | 2019-04-21 10:55 | PDOC2 ---
GRACE WEST SHIPPING ORDER CLERK 04/21/19 1055: CARDIAC CONSULT DATE OF CONSULT Date of Consult DATE: 04/21/19 TIME: 10:51 REASON FOR CONSULT Reason for Consult: Chest pain REFERRING PHYSICIAN Referring Physician: Dr. Truong SOURCE Source: Chart review, Patient HISTORY OF PRESENT ILLNESS HISTORY OF PRESENT ILLNESS This is a 58 yo male who presented secondary to chest pain. Patient reports not feeling well for the last 2-3 days. Has been more tired, fatigued. Yesterday, got very upset with dog as he had chewed wiring on the garage door sensor. Following getting upset, began feeling dizzy, diaphoretic. [place] as if his heart was skipping a beat. Had pressure in his central chest. No associated nausea. Was slightly short of breath. Was concerned with symptoms so he came to the ED for further evaluation and treatment. Blood pressure significantly elevated upon arrival. Reports compliance with medications and had taken his blood pressure medications prior to arrival. Blood pressure normally runs 130-140/70. No furt her pain overnight, but continues to feel fatigued. Had PCI/stent to the LAD 02/2019. Cath at that time noted with diffuse disease of the RCA with up to 70% blockage. Consideration of staged-PCI of the RCA if patient had re-occurrence of pain. Patient inquiring about this. PAST MEDICAL HISTORY Cardiovascular: CAD, HTN GI: GERD Psych: Anxiety Endocrine: Diabetes PAST SURGICAL HISTORY Past Surgical History: Other (PCI/stent ) FAMILY HISTORY Family History: Other (no pertinent hx) SOCIAL HISTORY Smoke: <1 pack per day ALCOHOL: occassional Drugs: None Lives: with Family CURRENT MEDICATIONS CURRENT MEDICATIONS Current Medications Medications (Trade) Dose Ordered Sig/Tobias Route PRN Reason Start Time Stop Time Status Last Admin Dose Admin Aspirin (Kelly Aspirin) 325 mg 1X ONCE PO 04/20/19 21:00 04/20/19 21:01 DC 04/20/19 21:12 Sodium Chloride 1,000 ml @ 1,000 mls/hr 1X ONCE IV 04/20/19 21:00 04/20/19 21:59 DC 04/20/19 21:12 Famotidine (Pepcid Vial) 20 mg 1X ONCE IVP 04/20/19 21:00 04/20/19 21:01 DC 04/20/19 21:12 Magnesium Sulfate 50 ml @ 25 mls/hr 1X ONCE IV 04/20/19 22:00 04/20/19 23:59 DC 04/21/19 00:56 ALLERGIES ALLERGIES: Coded Allergies: No Known Drug Allergies (Unverified , 03/02/19) ROS Review of System 14 point ROS conducted with pertinent positives noted above in HPI. PHYSICAL EXAM General: Alert, Oriented X3, Cooperative, No acute distress HEENT: Atraumatic, Mucous membr. moist/pink Lungs: Clear to auscultation Heart: Regular rate, Normal S1, Normal S2 Abdomen: Soft, No tenderness Extremities: No edema Skin: No breakdown, No significant lesion Neuro: Normal speech, Sensation intact Psych/Mental Status: Mental status NL, Mood NL MUSCULOSKELETAL: Osteoarthritic changes both hands VITALS/I&O VITALS/I&O: Vital Signs Date Time Temp Pulse Resp B/P (MAP) Pulse Ox O2 Delivery O2 Flow Rate FiO2 04/21/19 08:00 Room Air 04/21/19 07:00 97.8 60 18 150/67 (94) 94 97.8 LABS Lab: Laboratory Tests Test 04/20/19 20:38 04/21/19 00:45 04/21/19 03:30 04/21/19 08:30 White Blood Count 10.1 x10^3/uL (4.0-11.0) Red Blood Count 5.24 x10^6/uL (4.30-5.70) Hemoglobin 16.6 g/dL (13.0-17.5) Hematocrit 49.2 % (39.0-53.0) Mean Corpuscular Volume 94 fL (79-100) Mean Corpuscular Hemoglobin 32 pg (25-35) Mean Corpuscular Hemoglobin Concent 34 g/dL (31-37) Red Cell Distribution Width 13.6 % (11.5-14.5) Platelet Count 183 x10^3/uL (140-400) Neutrophils (%) (Auto) 59 % (31-73) Lymphocytes (%) (Auto) 28 % (24-48) Monocytes (%) (Auto) 9 % (0-9) Eosinophils (%) (Auto) 3 % (0-3) Basophils (%) (Auto) 1 % (0-3) Neutrophils # (Auto) 6.0 x10^3/uL (1.8-7.7) Lymphocytes # (Auto) 2.8 x10^3/uL (1.0-4.8) Monocytes # (Auto) 0.9 x10^3/uL (0.0-1.1) Eosinophils # (Auto) 0.3 x10^3/uL (0.0-0.7) Basophils # (Auto) 0.1 x10^3/uL (0.0-0.2) Prothrombin Time 11.9 SEC (11.7-14.0) Prothrombin Time INR 0.9 (0.8-1.1) Activated Partial Thromboplast Time 26 SEC (24-38) Sodium Level 144 mmol/L (136-145) Potassium Level 3.7 mmol/L (3.5-5.1) Chloride Level 108 mmol/L (98-107) H Carbon Dioxide Level 29 mmol/L (21-32) Anion Gap 7 (6-14) Blood Urea Nitrogen 22 mg/dL (8-26) Creatinine 1.6 mg/dL (0.7-1.3) H Estimated GFR (Cockcroft-Gault) 44.5 BUN/Creatinine Ratio 14 (6-20) Glucose Level 131 mg/dL (70-99) H Calcium Level 9.6 mg/dL (8.5-10.1) Magnesium Level 1.7 mg/dL (1.8-2.4) L Total Bilirubin 0.3 mg/dL (0.2-1.0) Aspartate Amino Transferase (AST) 18 U/L (15-37) Alanine Aminotransferase (ALT) 27 U/L (16-63) Alkaline Phosphatase 101 U/L (46-116) Creatine Kinase 60 U/L (39-308) Creatine Kinase MB (Mass) < 0.5 ng/mL (0.0-3.6) Creatine Kinase MB Relative Index % (0-4) Troponin I Quantitative < 0.017 ng/mL (0.000-0.055) < 0.017 ng/mL (0.000-0.055) 0.027 ng/mL (0.000-0.055) QA-Ejs-X-Type Natriuretic Peptide 289 pg/mL (0-124) H Total Protein 7.6 g/dL (6.4-8.2) Albumin 4.0 g/dL (3.4-5.0) Albumin/Globulin Ratio 1.1 (1.0-1.7) Lipase 104 U/L (73-393) Triglycerides Level 65 mg/dL (0-150) Cholesterol Level 69 mg/dL (0-200) LDL Cholesterol, Calculated 23 mg/dL (0-100) VLDL Cholesterol, Calculated 13 mg/dL (0-40) Non-HDL Cholesterol Calculated 36 mg/dL (0-129) HDL Cholesterol 33 mg/dL (40-60) L Cholesterol/HDL Ratio 2.1 Glucose (Fingerstick) 106 mg/dL (70-99) H Laboratory Tests 04/20/19 20:38 Laboratory Tests 04/20/19 20:38 ECHOCARDIOGRAM ECHOCARDIOGRAM <Conclusion> The left ventricular systolic function is normal and the ejection fraction is within normal range. The Ejection Fraction is 55-60%. There is normal LV segmental wall motion. DATE: 03/04/19 0907 HEART CATH HEART CATH CORONARY ANGIOGRAPHY: LM is a large caliber vessel with normal angiographic appearance. LAD is a large caliber vessel with a proximal 80% stenosis with partial plaque rupture. Ramus is a moderate caliber vessel with mild luminal irregularities. LCx is a large caliber non-dominant vessel with normal angiographic appearance. LPL1 is a moderate caliber vessel with normal angiographic appearance. RCA is a small caliber dominant vessel with a long diffuse calcified 70% stenosis. Cannot rule out old healed dissection. RPDA is a small caliber vessel with mild luminal irregularities. Conclusion 1. Two-vessel coronary artery disease. 2. Successful IVUS guided PCI of the proximal LAD with implantation of an Alpine 4.0/23 KRISTIN, post-dilated with 4.0 mm NC balloon at 14 breana. Recommendations ASA 81mg daily Prasugrel 10mg daily High dose statin therapy Consider staged PCI of the RCA (due to CKD) if any significant pain/symptoms. DATE: 03/03/19 1342 ASSESSMENT/PLAN ASSESSMENT/PLAN 1. Chest pain, mixed features; AMI ruled out. Recent echo with preserved LV systolic function 2. Malignant hypertension; remains mildly elevated. 3. CAD; s/p PCI/KRISTIN to LAD 02/2019. RCA with long diffuse calcified 70% stenosis 4. CKD; Cr stable per review 5. Hyperlipidemia; statin 6. Hypomagnesemia; replaced 7. Asymptomatic SB: lowest 49. No pauses. 8. Tobaccoism; discussed/encouraged cessation Recommendations Secondary prevention measures, ASA/Effient, statin, BB Resume home antiHTN therapy. Monitor to assess need for therapy titration Consider cardiac cath for evaluation of the RCA, possible PCI as patient returned with chest pain, fatigues, shortness of breath, and hypertensive urgency. R/b/a discussed with patient and he is agreeable. 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 SAM HYDE MD 04/21/19 7783: CARDIAC CONSULT ASSESSMENT/PLAN ASSESSMENT/PLAN Patient seen and examined. Agree with above nurse practitioner note. 58-year-old man with chest pain in the setting of hypertensive urgency. He has not had any exertional dyspnea or chest pain until he presented with hypertensive urgency His angiogram demonstrates stable disease of the right coronary artery without any significant changes compared to prior angiogram. His proximal LAD stent is widely patent In light of significant blood pressure issues we will again focus on aggressive blood pressure management over the next 24 hours. If on aggressive blood pressure management with a systolic blood pressure less than 140 he has any exertional chest pain or dyspnea could at that time consider a PCI of the RCA which would be complex given the small size of the vessel, severe calcific disease as well as probable prior old dissection in the vessel. Given heat that he has not had any EKG changes nor cardiac enzyme elevation would favor conservative management at this time. Discussed with the patient and his family who were in agreement. GRACE WEST APRN Apr 21, 2019 10:55 SAM HYDE MD Apr 21, 2019 18:43
--- NOTE | 2019-04-21 14:14 | HP ---
ADMIT DATE: 04/20/2019 CHIEF COMPLAINT: Chest pain. HISTORY OF PRESENT ILLNESS: The patient is a pleasant 58-year-old male who presented to the ER with chest pain. He has a 2-day history of generalized malaise as well. He has had some associated shortness of breath. He tried taking some [id number] meds that was not working. He was recently seen by Dr. Juares and received a cardiac stent a week or so ago. I discussed the case with ER physician. We are going to admit the patient and consult Cardiology. PAST MEDICAL HISTORY: CAD with recent stents, diabetes, hypertension, hyperlipidemia. ALLERGIES: None. FAMILY HISTORY: Diabetes. SOCIAL HISTORY: Does not drink, smoke or take drugs. MEDICATIONS: Reviewed, please refer to the MRAD. REVIEW OF SYSTEMS: GENERAL: No history of weight change, weakness or fevers. SKIN: No bruising, hair changes or rashes. EYES: No blurred, double or loss of vision. NOSE AND THROAT: No history of nosebleeds, hoarseness or sore throat. HEART: No history of palpitations, chest pain or shortness of breath on exertion. LUNGS: Denies cough, hemoptysis, wheezing or shortness of breath. GASTROINTESTINAL: Denies changes in appetite, nausea, vomiting, diarrhea or constipation. GENITOURINARY: No history of frequency, urgency, hesitancy or nocturia. NEUROLOGIC: Denies history of numbness, tingling, tremor or weakness. PSYCHIATRIC: No history of panic, anxiety or depression. ENDOCRINE: No history of heat or cold intolerance, polyuria or polydipsia. EXTREMITIES: Denies muscle weakness, joint pain, pain on walking or stiffness. PHYSICAL EXAMINATION: VITALS: Within normal limits and are stable. GENERAL: No apparent distress. Alert and oriented. HEENT: Head is normocephalic, atraumatic, pupils were equally round and reactive to light and accommodation. NECK: Supple, no JVD, no thyromegaly was noted. LUNGS: Clear to auscultation in all lung lopez without rhonchi or wheezing. HEART: RRR, S1, S2 present. Peripheral pulses intact, no obvious murmurs were noted. ABDOMEN: Soft, nontender. Positive bowel sounds no organomegaly, normal bowel sounds. EXTREMITIES: Without any cyanosis, clubbing, or edema. Pedal pulses intact, Homans sign is negative. NEUROLOGIC: Normal speech, normal tone. A and O x3, moves all extremities, no obvious focal deficits. PSYCHIATRIC: Normal affect, normal mood. Stable. SKIN: No ulcerations or rashes, good skin turgor, no jaundice. VASCULAR: Good capillary refill, neurovascular bundle appears to be intact. LABORATORY DATA: Troponin is 0. ASSESSMENT AND PLAN: Chest pain with known coronary disease. The patient has been admitted. We are checking serial enzymes, serial EKGs. Consult Cardiology, cardiac monitoring, daily aspirin, p.r.n. nitro, home meds, DVT prophylaxis. TRUMAN MARTINEZ DO DR: VIRIDIANA/abhay JOB#: [id number] / [id number]
[2019-04-21] MEDS ORDERED: LIDOCAINE 1% PF 2 ML VIAL. ONE (15:12)
[2019-04-21] MEDS ORDERED: IODIXANOL 320 MG/ML 100 ML VIAL. ONE (15:12)
[2019-04-21] MEDS ORDERED: IODIXANOL 320 MG/ML 100 ML VIAL. IART ONE (15:15)
[2019-04-21] MEDS ORDERED: MIDAZOLAM HCL/PF 2 MG/2 ML VIAL. IV ONE (15:15)
[2019-04-21] MEDS ORDERED: LIDOCAINE 1% PF 2 ML VIAL. INJ ONE (15:15)
[2019-04-21] MEDS ORDERED: NITROGLYCERIN 200 MCG/2 ML SYRINGE FOR CATH/VASC LAB. IART ONE (15:15)
[2019-04-21] MEDS ORDERED: fentaNYL PF VIAL 100 MCG/2 ML VIAL IV ONE (15:15)
[2019-04-21] MEDS ORDERED: VERAPAMIL 5 MG/2 ML VIAL. IART ONE (15:15)
[2019-04-21] MEDS ORDERED: HEPARIN for IV BOLUS 10,000 UNIT/10 ML VIAL. IART ONE (15:15)
[2019-04-21] MEDS ORDERED: HEPARIN for IV BOLUS 10,000 UNIT/10 ML VIAL. ONE (15:19)
[2019-04-21] MEDS ORDERED: NITROGLYCERIN 200 MCG/2 ML SYRINGE FOR CATH/VASC LAB. ONE (15:19)
[2019-04-21] MEDS ORDERED: VERAPAMIL 5 MG/2 ML VIAL. ONE (15:19)
[2019-04-21] MEDS ORDERED: CONTRAST GIVEN. MC PRN (15:30)
[2019-04-21] MEDS ORDERED: MIDAZOLAM HCL/PF 2 MG/2 ML VIAL. ONE (15:49)
--- NOTE | 2019-04-21 17:40 | CARD ---
MR#: [id number] Date of Study: 04/21/2019 Ordering Physician: SAM HYDE, Referring Physician: SAM HYDE, Tech: RT Niels (R) LUCA APPROVED REPORT Technologist: RT Niels (R) LUCA Nurse: Gege Lynch RN Procedure(s) performed: FLUORO TIME:1.1 MIN DOSE: 12.3 Gycm2 Mod Sed: 25 min Contrast: 21ml Coronary angiography HISTORY The patient is a 58 year-old male with a history of : coronary artery disease. INDICATION The indication(s) include : unstable angina . CSHA Clinical Frailty Scale CSHA Clinical Frailty Scale: Managing Well Heart Failure Heart Failure: No PROCEDURE NARRATIVE INFORMED CONSENT: After explaining the risks and benefits of the procedure and alternatives, informed consent was obtained. The patient was brought electively to the cardiac catheterization lab. A timeout was performed confi rming the patient's name, date of , procedure, and site of procedure. All necessary personnel w ere wearing the appropriate protective equipment and radiation monitor devices. (See nursing notes for medications administered). ACCESS: The right wrist was sterilely prepped and draped in the usual fashion. The right wrist was infiltrat ed with 1 mL of 2% lidocaine for subcutaneous anesthesia. A 6 Kyr[place] Terumo glide sheath was inserte d into the right radial artery without difficulty. CORONARY ANGIOGRAPHY: Right and left coronary angiography was performed using a 6Fr TIG 4.0 catheter. All catheter exchan ges and advancements were performed over a guidewire. CLOSURE: At case completion the right radial sheath was removed and a Terumo radial band was applied with 13 m l of air. COMPLICATIONS: The patient tolerated the procedure well and there were no immediate complications. FINDINGS: HEMODYNAMICS: AO: 168/78 LEFT VENTRICULOGRAM: Deferred due to renal insufficiency. CORONARY ANGIOGRAPHY: LM is a large caliber vessel with normal angiographic appearance. LAD is a large caliber vessel with a widely patent proximal stent. LCx is a moderate caliber non-dominant vessel with normal angiographic appearance. OM1 is a moderate caliber vessel with normal angiographic appearance. RCA is a moderate caliber vessel with a long proximal to mid 70% stenosis with appearance of prior he aled occlusion/spontaneous dissection. The vessel is unchanged in appearance from prior angiography Conclusion 1. Two vessel CAD 2. No significant changes from prior 3. Hypertensive urgency Recommendations Aggressive Medical Therapy Signed by : Sam Hyde, Electronically Approved : 04/21/2019 17:39:54
[2019-04-21] MEDS: ASPIRIN ENTERIC COATED 81 MG TABLET.DR. PO SCH (18:17)
[2019-04-21] MEDS: ISOSORBIDE MONONITRATE ER 30 MG TAB.ER.24H PO SCH (18:18)
[2019-04-21] MEDS ORDERED: ATORVASTATIN CALCIUM 40 MG TABLET. PO SCH (21:00)
[2019-04-21] MEDS: METOPROLOL TART IMMED RELEASE 25 MG TABLET. PO SCH (21:24)
[2019-04-21] MEDS: hydrALAZINE 25 MG TABLET PO SCH (21:25)
[2019-04-21] MEDS: ACETAMINOPHEN 325 MG TABLET. PO PRN (23:41)
[2019-04-22 03:32] VITALS: BP 123/59
[2019-04-22 04:54] LABS: CALCIUM 8.8 mg/dL (8.5-10.1); CREATININE 1.6 mg/dL (0.7-1.3); GFR 44.5; MAGNESIUM 1.9 mg/dL (1.8-2.4); POTASSIUM 3.9 mmol/L (3.5-5.1)
[2019-04-22] MEDS: ACETAMINOPHEN 325 MG TABLET. PO PRN ×2 (06:31→13:52)
[2019-04-22 07:00] VITALS: BP 121/63
[2019-04-22] MEDS ORDERED: PRASUGREL 10 MG TABLET. PO SCH (08:00)
[2019-04-22] MEDS: INSULIN LISPRO 300 UNITS/3 ML VIAL. SQ SCH ×2 (08:00→12:00)
[2019-04-22] MEDS: ASPIRIN ENTERIC COATED 81 MG TABLET.DR. PO SCH (08:39)
[2019-04-22] MEDS: ISOSORBIDE MONONITRATE ER 30 MG TAB.ER.24H PO SCH (10:12)
[2019-04-22 10:57] VITALS: BP 119/66
--- NOTE | 2019-04-22 11:28 | PDOC ---
[employer] PROGRESS NOTE Chief Complaint Chief Complaint Chest pain History of Present Illness History of Present Illness 04/22/19 Pt seen and examined Pt feeling better and denies any pain today Ready to be discharged Vitals/I&O Vitals/I&O: Vital Signs Date Time Temp Pulse Resp B/P (MAP) Pulse Ox O2 Delivery O2 Flow Rate FiO2 04/22/19 10:57 97.9 60 16 119/66 (83) 95 Room Air 97.9 04/21/19 21:00 2.0 I & O 04/21/19 04/21/19 04/22/19 14:59 22:59 06:59 Intake Total 536 ml 1100 ml Balance 536 ml 1100 ml Physical Exam General: Alert, Oriented X3, Cooperative, No acute distress Heart: Regular rate, Normal S1, Normal S2 Abdomen: Soft, No tenderness Extremities: No edema Skin: No breakdown, No significant lesion Labs Labs: Laboratory Tests Test 04/21/19 12:13 04/21/19 17:30 04/21/19 20:17 04/22/19 03:55 Glucose (Fingerstick) 99 mg/dL (70-99) 98 mg/dL (70-99) 235 mg/dL (70-99) Sodium Level 145 mmol/L (136-145) Potassium Level 3.9 mmol/L (3.5-5.1) Chloride Level 109 mmol/L (98-107) Carbon Dioxide Level 28 mmol/L (21-32) Anion Gap 8 (6-14) Blood Urea Nitrogen 23 mg/dL (8-26) Creatinine 1.6 mg/dL (0.7-1.3) Estimated GFR (Cockcroft-Gault) 44.5 Glucose Level 88 mg/dL (70-99) Calcium Level 8.8 mg/dL (8.5-10.1) Magnesium Level 1.9 mg/dL (1.8-2.4) Review of Systems Review of Systems: Denies pain Denies shortness of breath Denies weakness Assessment and Plan Assessmemt and Plan Problems Medical Problems: (1) CAD (coronary artery disease) Status: Chronic (2) CKD (chronic kidney disease) Status: Chronic (3) HLD (hyperlipidemia) Status: Chronic (4) Malignant hypertension Status: Acute Assessment Acute chest pain Mild blockage of RCA Hyperlipidemia Htn Plan Discharge ok with cardio Medical Management consistent with cardio .4mg NG PRN Home Meds DVT prophylaxis Comment Review of Relevant I have reviewed the following items kamryn (where applicable) has been applied. Medications: Current Medications Medications (Trade) Dose Ordered Sig/Tobias Route PRN Reason Start Time Stop Time Status Last Admin Dose Admin Nitroglycerin (Nitroglycerin) 200 mcg 1X ONCE IART 04/21/19 15:15 04/21/19 15:21 DC 04/21/19 16:03 Verapamil HCl (Verapamil) 2.5 mg 1X ONCE IART 04/21/19 15:15 04/21/19 15:21 DC 04/21/19 16:03 Heparin Sodium (Porcine) (Heparin Sodium) 2,500 unit 1X ONCE IART 04/21/19 15:15 04/21/19 15:21 DC 04/21/19 16:03 Heparin Sodium/ Sodium Chloride (HEPARIN for ARTERIAL LINE FLUSH) 1,000 unit 1X ONCE IART 04/21/19 15:15 04/21/19 15:21 DC 04/21/19 15:38 Heparin Sodium/ Sodium Chloride (HEPARIN for ARTERIAL LINE FLUSH) 1,000 unit 1X ONCE IART 04/21/19 15:15 04/21/19 15:21 DC 04/21/19 15:38 Midazolam HCl (Versed) 2 mg 1X ONCE IV 04/21/19 15:15 04/21/19 15:21 DC 04/21/19 16:03 Fentanyl Citrate (Fentanyl 2ml Vial) 100 mcg 1X ONCE IV 04/21/19 15:15 04/21/19 15:21 DC 04/21/19 16:03 Iodixanol (Visipaque 320) 100 ml 1X ONCE IART 04/21/19 15:15 04/21/19 15:21 DC 04/21/19 16:03 Lidocaine HCl (Xylocaine-Mpf 1% 2ml Vial) 2 ml 1X ONCE INJ 04/21/19 15:15 04/21/19 15:21 DC 04/21/19 16:03 Aspirin (Ecotrin) 81 mg DAILYWBKFT PO 04/21/19 17:00 04/22/19 08:42 Atorvastatin Calcium (Lipitor) 40 mg QHS PO 04/21/19 21:00 04/21/19 21:25 Hydralazine HCl (Apresoline) 25 mg BID PO 04/21/19 21:00 04/21/19 21:25 Metoprolol Tartrate (Lopressor) 12.5 mg BID PO 04/21/19 21:00 04/21/19 21:25 Prasugrel (Effient) 10 mg DAILYWBKFT PO 04/22/19 08:00 04/22/19 08:42 Isosorbide Mononitrate (Imdur) 30 mg DAILY PO 04/21/19 17:00 04/22/19 10:12 Acetaminophen (Tylenol) 650 mg PRN Q6HRS PRN PO headache 04/21/19 23:30 04/22/19 06:31 TRUMAN MARTINEZ III DO Apr 22, 2019 11:28
--- NOTE | 2019-04-22 11:33 | PDOC ---
FLORENTINO FLORES MEDICAL LEAD 04/22/19 1133: CARDIO Progress Notes Date and Time Date of Service 04/22/2019 Time of Evaluation 1130 Subjective Subjective: No Chest Pain, No shortness of breath, No Palpitations Vitals Vitals Vital Signs Date Time Temp Pulse Resp B/P (MAP) Pulse Ox O2 Delivery O2 Flow Rate FiO2 04/22/19 10:57 97.9 60 16 119/66 (83) 95 Room Air 97.9 04/21/19 21:00 2.0 Weight Weight [ ] Input and Output Intake and Output Intake and Output 04/22/19 06:59 Intake Total 1636 ml Balance 1636 ml Intake Oral 1636 ml # Voids 7 Laboratory Labs Laboratory Tests Test 04/21/19 12:13 04/21/19 17:30 04/21/19 20:17 04/22/19 03:55 Glucose (Fingerstick) 99 mg/dL (70-99) 98 mg/dL (70-99) 235 mg/dL (70-99) Sodium Level 145 mmol/L (136-145) Potassium Level 3.9 mmol/L (3.5-5.1) Chloride Level 109 mmol/L (98-107) Carbon Dioxide Level 28 mmol/L (21-32) Anion Gap 8 (6-14) Blood Urea Nitrogen 23 mg/dL (8-26) Creatinine 1.6 mg/dL (0.7-1.3) Estimated GFR (Cockcroft-Gault) 44.5 Glucose Level 88 mg/dL (70-99) Calcium Level 8.8 mg/dL (8.5-10.1) Magnesium Level 1.9 mg/dL (1.8-2.4) Physical Exam HEENT: Neck Supple W Full Motion Chest: Symmetric LUNGS: Clear to Auscultation Heart: S1S2, RRR (SR) Abdomen: Soft N/T Extremities: No Calf Tenderness Neurology: alert, oriented, follow commands Other Exams right wrist arteriotomy site intact, no swelling or erythema, neurovascular status to right hand intact. Assessment Assessment 1. Chest pain: likely from uncontrolled HTN 2. HTN urgency: better 3. CAD; s/p PCI/KRISTIN to LAD 02/2019. RCA with long diffuse calcified 70% stenosis, No changes per [facility]. Continue with medical therapy. 4. CKD; Cr stable per review 5. Hyperlipidemia; statin 6. Asymptomatic SB: lowest 49. No pauses. 7. Tobaccoism; discussed/encouraged cessation Recommendations Secondary prevention measures, Continue ASA/Effient, statin, low dose BB. Continue with Imdur. Follow up in office. December DC per cardiac standpoint SAM HYDE MD 04/23/19 1157: CARDIO Progress Notes Plan Plan Late entry for 04/22/2019 Pt. seen and examined. 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 If he has trouble with headaches from Imdur, then plan to just increase Hydralazine. If persistent issues of CP despite adequate BP control, plan for PCI of the RCA FLORENTINO FLORES APRN Apr 22, 2019 11:33 SAM HYDE MD Apr 23, 2019 11:57
[2019-04-22] MEDS: hydrALAZINE 25 MG TABLET PO SCH (11:53)
[2019-04-22] MEDS: METOPROLOL TART IMMED RELEASE 25 MG TABLET. PO SCH (11:54)
[2019-04-22] MEDS ORDERED: ISOS30TA4 PO ×2 (12:10→12:12)
[2019-04-22] MEDS ORDERED: NITR0.4T22 SL (12:24)
[2019-04-22 14:11] VITALS: BP 122/62
--- NOTE | 2019-04-22 14:40 | NUR ---
Discharge Note: JONY RANDALL [address] [place] [address] Discharge instructions and discharge home medications reviewed with Patient and a copy given. All questions have been answered and understanding verbalized. The following instructions and handouts were given: CAD info, CP info, HTN info, hypotension info, smoking cessation info, nanci info, post cath instructions, discharge instructions, follow ups. Discontinued lines and drains: Peripheral IV intact. Patient discharged to Home or Self Care with Family Member via Ambulated at 1440. Prescription for Imdur called into patient's pharmacy.
--- NOTE | 2019-04-23 17:51 | DS ---
DATE OF DISCHARGE: 04/22/2019 ADMISSION DIAGNOSIS: Chest pain. DISCHARGE DIAGNOSIS: Mild coronary artery disease (we went with medical management; he might need a right coronary artery stent down the road). HOSPITAL COURSE: The patient is a pleasant 58-year-old male, who presented with chest pain. We admitted the patient and consulted Cardiology. He went for cardiac catheterization. He had some mild disease in the right coronary artery. They opted for medical management. Yesterday, we saw and examined him. He was doing great. We discharged to home and he may have to come back for a right coronary artery stent if he develops more symptoms. DISPOSITION: Home. ACTIVITY: As tolerated. DIET: Cardiac. MEDICATIONS: Please see the MRAD. TOTAL TIME: 33 minutes. TRUMAN MARTINEZ DO DR: VIRIDIANA/abhay JOB#: [id number] / [id number]
== END 2019-04-22 14:40 | disposition home or self-care (01) | DRG 287 ==
LOC: ER 20:29 → OBSVTOIN 21:30 → 2 SOUTH 21:30
PROVIDERS: ADMIT Family Medicine; ATTEND Family Medicine
PROC: 4A023N7 Measurement of Cardiac Sampling and Pressure, Left Heart, Percutaneous Approach (ICD-10-PCS; principal; 2019-04-21)
PROC: B211YZZ Fluoroscopy of Multiple Coronary Arteries using Other Contrast (ICD-10-PCS; 2019-04-21)
DX: I25.10 Atherosclerotic heart disease of native coronary artery without angina pectoris (principal); I16.0 Hypertensive urgency; E11.22 Type 2 diabetes mellitus with diabetic chronic kidney disease; I12.9 Hypertensive chronic kidney disease with stage 1 through stage 4 chronic kidney disease, or unspecified chronic kidney disease; N18.9 Chronic kidney disease, unspecified; E78.00 Pure hypercholesterolemia, unspecified; E78.5 Hyperlipidemia, unspecified; E83.42 Hypomagnesemia; R00.1 Bradycardia, unspecified; K21.9 Gastro-esophageal reflux disease without esophagitis; F41.9 Anxiety disorder, unspecified; F17.210 Nicotine dependence, cigarettes, uncomplicated; Z83.3 Family history of diabetes mellitus; Z95.5 Presence of coronary angioplasty implant and graft; Z71.6 Tobacco abuse counseling
CPT/HCPCS: 36415; 71046; 80048; 80053; 80061; 82553; 82962; 83690; 83735; 83880; 84484; 85025; 85610; 85730; 93005; 93454; 96361; 96374; 99152; 99153; C1769; C1892; J1644; J1815; J2250; J3010; J3475; J3490; J7030; Q9967; 99285-25; G0378

== ENCOUNTER → 2020-07-06 | Outpatient (CLI) | payer OTHER ==
[~2020-07-06] MED LIST changes: -ASPI-612 PO; +ASPI-886 PO; +CALC200T3 PO; +ISOS30TA4 PO; -LISI1TAB19 PO; +LISI1TAB37 PO; +NITR0.4T22 SL; +OMEG-131 PO
--- NOTE | 2020-07-06 13:07 | CARD ---
MR#: [id number] Date of Study: 07/06/2020 Ordering Physician: SAM HYDE, Referring Physician: SAM HYDE, Tech: Argelia Álvarez [facility] APPROVED REPORT EXAM: Two-dimensional and M-mode echocardiogram with Doppler and color Doppler. Other Information Quality : GoodHR: 66bpm Rhythm : NSR INDICATION CAD. Hx: Stent, HTN, HLP. 2D DIMENSIONS RVDd3.9 (2.9-3.5cm)IVSd1.3 (0.7-1.1cm) Aortic Root(2D)3.7 (2.0-3.7cm)LVDd5.0 (3.9-5.9cm) LVOT Diameter2.3 (1.8-2.4cm)PWd1.3 (0.7-1.1cm) LVDs3.5 (2.5-4.0cm)FS (%) 29.8 % SV65.8 mlLVEF(%)56.8 (>50%) Aortic Valve AoV Peak Marko.130.1cm/Dianne Peak GR.6.8mmHg LVOT Peak Marko.91.4cm/sAVA (VMAX)2.87cm2 Mitral Valve MV E Ucmaitrd63.0cm/sMV DECEL [id number] MV A Jcwtxiym30.5cm/sE/A Ratio1.7 MV A [id number] Pulmonary Valve PV Peak Cqyxbyie58.0cm/s Tricuspid Valve RAP [id number] Pulmonary Vein S1 Eztcjqby76.3cm/sD2 Yuddkikg51.1cm/s LEFT VENTRICLE The left ventricle is normal size. There is mild concentric left ventricular hypertrophy. The left ve ntricular systolic function is normal. The Ejection Fraction is 55-60%. There is normal LV segmental wall motion. Moderate diastolic dysfunction. Grade II. RIGHT VENTRICLE The right ventricle is normal size. The right ventricular systolic function is normal. ATRIA The left atrium is mild to moderately dilated. The right atrium size is normal. The interatrial septu m is intact with no evidence for an atrial septal defect or patent foramen ovale as noted on 2-D or D oppler imaging. AORTIC VALVE The aortic valve is normal in structure and function. No aortic regurgitation. No aortic valvular sandra nosis. MITRAL VALVE The mitral valve is normal in structure and function. There is no mitral valve stenosis. Mild mitral regurgitation. TRICUSPID VALVE The tricuspid valve is normal in structure and function. Trace tricuspid regurgitation. Unable to ass ess PA pressures. There is no tricuspid valve stenosis. PULMONIC VALVE The pulmonary valve is normal in structure and function. Mild pulmonic valvular regurgitation. There is no pulmonic valvular stenosis. GREAT VESSELS The aortic root is normal in size. The ascending aorta is normal in size. The IVC is normal in size a nd collapses >50% with inspiration. PERICARDIAL EFFUSION There is no evidence of significant pericardial effusion. Critical Notification Critical Value: No <Conclusion> The left ventricular systolic function is normal. The Ejection Fraction is 55-60%. There is normal LV segmental wall motion. Signed by : Sam Hyde, Electronically Approved : 07/06/2020 13:06:35
== END ==
LOC: ECHO 09:10
PROVIDERS: ATTEND Internal Medicine Cardiovascular Disease
DX: I08.8 Other rheumatic multiple valve diseases (principal); I25.10 Atherosclerotic heart disease of native coronary artery without angina pectoris; I10 Essential (primary) hypertension; Z95.5 Presence of coronary angioplasty implant and graft
CPT/HCPCS: 93306

== ENCOUNTER 2021-09-12 09:30 | Observation (INO) | payer OTHER ==
[~2021-09-12] VITALS: Ht 170.2 cm; Wt 75.9 kg
[~2021-09-12 09:30] MED LIST changes: -ISOS30TA4 PO; +ISOS30TA68 PO
[2021-09-12 10:14] LABS: BASO # 0.1 x10^3/uL (0.0-0.2); BASO % 1 % (0-3); EOS # 0.2 x10^3/uL (0.0-0.7); EOS % 1 % (0-3); HEMATOCRIT 48.7 % (39.0-53.0); HEMOGLOBIN 16.2 g/dL (13.0-17.5); LYMPH # 1.8 x10^3/uL (1.0-4.8); LYMPH % 13 % (24-48); MEAN CORPUSCULAR HEMOGLOBIN 31 pg (25-35); MEAN CORPUSCULAR HGB CONC 33 g/dL (31-37); MEAN CORPUSCULAR VOLUME 92 fL (79-100); MONO # 0.8 x10^3/uL (0.0-1.1); MONO % 6 % (0-9); NEUT # 10.9 x10^3/uL (1.8-7.7); NEUT % 79 % (31-73); PLATELET COUNT 163 x10^3/uL (140-400); RED BLOOD COUNT 5.29 x10^6/uL (4.30-5.70); RED CELL DISTRIBUTION WIDTH 13.2 % (11.5-14.5); WHITE BLOOD COUNT 13.9 x10^3/uL (4.0-11.0)
[2021-09-12] MEDS ORDERED: IV NORMAL SALINE 1000ML BAG 1,000 ML IV ONE (10:15)
--- NOTE | 2021-09-12 10:25 | RAD ---
EXAM: Chest, single view. HISTORY: Near syncope. COMPARISON: 04/20/2019 FINDINGS: A frontal view of the chest is obtained. There is no infiltrate, pleural fusion or pneumoth orax. The heart is normal in size. There is a coronary artery stent. There are incidental chronic chanelle earing left rib fractures. IMPRESSION: No acute pulmonary finding. Electronically signed by: Sandra Yi MD (09/12/2021 10:23 AM) [id number]
[2021-09-12 10:26] LABS: PROTHROMBIN TIME PATIENT 11.9 SEC (11.7-14.0)
[2021-09-12 10:29] LABS: CALCIUM 8.7 mg/dL (8.5-10.1); CREATININE 1.4 mg/dL (0.7-1.3); GFR 51.5
[2021-09-12] MEDS ORDERED: ASPIRIN 325 MG TABLET PO ONE (10:30)
[2021-09-12 10:36] LABS: ALBUMIN 3.6 g/dL (3.4-5.0); ALBUMIN/GLOBULIN RATIO 1.1 (1.0-1.7); TOTAL BILIRUBIN 0.6 mg/dL (0.2-1.0)
[2021-09-12 11:08] LABS: BILIRUBIN,URINE NEGATIVE (NEG); CLARITY,URINE CLEAR; COLOR,URINE YELLOW; NITRITE,URINE NEGATIVE (NEG); PROTEIN,URINE 100 mg/dL (NEG-TRACE); UROBILINOGEN,URINE 0.2 mg/dL (0.2 mg/dL)
--- NOTE | 2021-09-12 11:16 | PHYS DOC ---
Past Medical History Past Medical History: CAD, Diabetes-Type II, High Cholesterol, Hypertension Additional Past Medical Histor: prediabetes, Skin Cancer Past Surgical History: Other Additional Past Surgical Histo: STENT PLACED Smoking Status: Current Every Day Smoker Additional Information: 1/2 pack/day Alcohol Use: Rarely Drug Use: None Adult General Chief Complaint Chief Complaint: NEAR SYNCOPE HPI HPI The patient is a 60-year-old male with a history of hypertension, hyperlipidemia, coronary artery disease status post stenting, lso-zzdyxuc-eghfuinin diabetes, continued active tobacco abuse. Patient presents for evaluation of an episode occurring prior to arrival. Mr. Blount was in his normal state of health this morning, and reports that he felt fine when he awoke and until he got to work. While at work, suddenly, he became sweaty and nauseated and felt as though he would faint, but did not. He was able to sit down and did not fall. He felt nauseated and sweaty and lightheaded for about 15 minutes in total before symptoms entirely resolved. EMS were called and responded to the patient's workplace but he elected to go to the hospital via private vehicle. Upon initial evaluation here in the emergency department patient is alert and oriented and pleasantly and appropriately interactive and in no acute distress, with appropriate vital signs. He reports the symptoms that brought him here have resolved. He denies any associated fevers, focal or lateralizing weakness, numbness or tingling, neck stiffness/pain/meningismus, vision changes, vomiting, upper respiratory congestion/rhinorrhea, cough, sore throat, shortness of breath or chest pain of any kind prior to, during or after the episode in question, abdominal pain of any kind, flank pain of any kind, dysuria, hematuria, polyuria or oliguria, changes in bowel habits. Review of Systems Review of Systems A 12 point review of systems was completed and was negative except where noted in HPI above. Current Medications Current Medications Current Medications Medications (Trade) Dose Ordered Sig/Tobias Start Time Stop Time Status Last Admin Dose Admin Aspirin (Kelly Aspirin) 325 mg 1X ONCE 09/12/21 10:30 09/12/21 10:31 DC 09/12/21 10:33 325 MG Sodium Chloride 1,000 ml @ 1,000 mls/hr 1X ONCE 09/12/21 10:15 09/12/21 11:14 09/12/21 10:30 1,000 MLS/HR Allergies Allergies Allergies Coded Allergies Type Severity Reaction Last Updated Verified No Known Drug Allergies 03/02/19 No Physical Exam Physical Exam Elderly male appearing nontoxic and in no acute distress. Head is normocephalic and atraumatic. Neck is supple and nontender. Oropharynx is moist. Lungs are clear to auscultation at all stations. There is a normal S1 and S2 without rubs or gallops and capillary refill is appropriate, less than 2 seconds globally. Abdomen is soft, nontender and nondistended without pulsatile mass. Skin is warm and dry without cyanosis, clubbing or edema. Psychiatrically, the patient demonstrates appropriate mood and affect and is alert. Evaluation of the extremities reveals BUEs and BLEs neurovascularly intact distally with strength 5 out of 5, sensation intact to light touch in all nerve distributions, radial, DP and PT pulses 2+ and equal bilaterally, capillary refill less than 2 seconds, hands and feet warm and well-perfused. No dependent peripheral edema distally. No calf tenderness swelling bilaterally. Homans test is negative bilaterally. Current Patient Data Vital Signs Vital Signs Date Time Temp Pulse Resp B/P (MAP) Pulse Ox O2 Delivery O2 Flow Rate FiO2 09/12/21 09:38 97.3 65 22 156/73 (100) 98 Room Air 97.3 Lab Values Laboratory Tests Test 09/12/21 10:05 09/12/21 10:22 White Blood Count 13.9 x10^3/uL (4.0-11.0) H Red Blood Count 5.29 x10^6/uL (4.30-5.70) Hemoglobin 16.2 g/dL (13.0-17.5) Hematocrit 48.7 % (39.0-53.0) Mean Corpuscular Volume 92 fL (79-100) Mean Corpuscular Hemoglobin 31 pg (25-35) Mean Corpuscular Hemoglobin Concent 33 g/dL (31-37) Red Cell Distribution Width 13.2 % (11.5-14.5) Platelet Count 163 x10^3/uL (140-400) Neutrophils (%) (Auto) 79 % (31-73) H Lymphocytes (%) (Auto) 13 % (24-48) L Monocytes (%) (Auto) 6 % (0-9) Eosinophils (%) (Auto) 1 % (0-3) Basophils (%) (Auto) 1 % (0-3) Neutrophils # (Auto) 10.9 x10^3/uL (1.8-7.7) H Lymphocytes # (Auto) 1.8 x10^3/uL (1.0-4.8) Monocytes # (Auto) 0.8 x10^3/uL (0.0-1.1) Eosinophils # (Auto) 0.2 x10^3/uL (0.0-0.7) Basophils # (Auto) 0.1 x10^3/uL (0.0-0.2) Prothrombin Time 11.9 SEC (11.7-14.0) Prothrombin Time INR 0.9 (0.8-1.1) Activated Partial Thromboplast Time 23 SEC (24-38) L Sodium Level 138 mmol/L (136-145) Potassium Level 4.0 mmol/L (3.5-5.1) Chloride Level 103 mmol/L (98-107) Carbon Dioxide Level 24 mmol/L (21-32) Anion Gap 11 (6-14) Blood Urea Nitrogen 22 mg/dL (8-26) Creatinine 1.4 mg/dL (0.7-1.3) H Estimated GFR (Cockcroft-Gault) 51.5 BUN/Creatinine Ratio 16 (6-20) Glucose Level 311 mg/dL (70-99) H Calcium Level 8.7 mg/dL (8.5-10.1) Total Bilirubin 0.6 mg/dL (0.2-1.0) Aspartate Amino Transferase (AST) 14 U/L (15-37) L Alanine Aminotransferase (ALT) 31 U/L (16-63) Alkaline Phosphatase 106 U/L (46-116) Troponin I High Sensitivity 8 ng/L (4-75) VV-Acd-A-Type Natriuretic Peptide 339 pg/mL (0-124) H Total Protein 7.0 g/dL (6.4-8.2) Albumin 3.6 g/dL (3.4-5.0) Albumin/Globulin Ratio 1.1 (1.0-1.7) SARS-CoV-2 Antigen (Rapid) Negative (NEGATIVE) Laboratory Tests 09/12/21 10:05 Laboratory Tests 09/12/21 10:05 EKG EKG Sinus rhythm, rate 54, no acute ST elevation or depression, nonspecific STT changes in anteroseptal leads, new versus prior EKG from 2019, MD 148, QRS 98, QTc 430, EP interpretation. Nonischemic tracing, intervals appropriate. Repeat EKG about 1 hour after the first with no significant change. Radiology/Procedures Radiology/Procedures EXAM: Chest, single view. HISTORY: Near syncope. COMPARISON: 04/20/2019 FINDINGS: A frontal view of the chest is obtained. There is no infiltrate, pleural fusion or pneumothorax. The heart is normal in size. There is a coronary artery stent. There are incidental chronic appearing left rib fractures. IMPRESSION: No acute pulmonary finding. Electronically signed by: Sandra Pool MD (09/12/2021 10:23 AM) [id number] DICTATED and SIGNED BY: SANDRA POOL MD DATE: 09/12/21 [id number] 0 Course & Med Decision Making Course & Med Decision Making Well-appearing 60-year-old male presenting for evaluation of a concerning fairly protracted near syncopal episode with associated nausea and diaphoresis occurring at work prior to arrival. No associated chest pain. Symptoms resolved now. EKG with some nonspecific anteroseptal changes, new versus last EKG from 2019. Case discussed with Dr. Rosario who reviewed EKGs with me and recommends following troponins. Labs unremarkable as above. Given concerning near syncopal episode in this comorbid male, will bring in for observation on telemetry and further care. Graciously accepted for admission by Dr. Vega. Gisselle Disclaimer Gisselle Disclaimer This electronic medical record was generated, in whole or in part, using a voice recognition dictation system. Departure Departure Impression: Primary Impression: Near syncope Disposition: 09 ADMITTED INPATIENT Referrals: GARRISON HILTON DO (PCP) CONRAD FLYNN MD Sep 12, 2021 11:16
[2021-09-12 11:29] LABS: HYALINE CASTS, URINE FEW /HPF; RBC,URINE OCC /HPF (0-2)
[2021-09-12 11:30] LABS: BACTERIA,URINE FEW /HPF (0-FEW)
[2021-09-12] MEDS ORDERED: ONDANSETRON PF 4 MG/2 ML VIAL. IVP PRN (11:45)
--- NOTE | 2021-09-12 14:12 | PDOC2 ---
GRACE WSET [employer]W MEMBER 09/12/21 1412: CARDIAC CONSULT DATE OF CONSULT Date of Consult DATE: 09/12/21 TIME: 13:52 REASON FOR CONSULT Reason for Consult: Near syncope, abnormal EKG REFERRING PHYSICIAN Referring Physician: Dr. Schumacher SOURCE Source: Chart review, Patient HISTORY OF PRESENT ILLNESS HISTORY OF PRESENT ILLNESS This is a 60 yo male who presented secondary to near syncopal episode. Patient reports feeling well this morning. Did his usual routine and went on to work. While at work this morning, had sudden onset of lightheadedness. Was associated with diaphoresis and burning sensation in his abdomen. [place] as if he could pass out, but he did not. Was able to sit down. EMS was called. Patient reports symptoms resolved after about 10mins. He denies any chest pain, shortness of breath, or palpitations. Is feeling well now and would like to go home. PAST MEDICAL HISTORY Past Medical History Cardiovascular: CAD, HTN, HLD GI: GERD Psych: Anxiety Endocrine: Diabetes, CKD PAST SURGICAL HISTORY Past Surgical History Other (PCI/stent ) FAMILY HISTORY Family History: Other (no pertinent history ) SOCIAL HISTORY Social History Smoke: <1 pack per day ALCOHOL: occasional Drugs: None Lives: with Family CURRENT MEDICATIONS CURRENT MEDICATIONS Current Medications Medications (Trade) Dose Ordered Sig/Tobias Route PRN Reason Start Time Stop Time Status Last Admin Dose Admin Sodium Chloride 1,000 ml @ 1,000 mls/hr 1X ONCE IV 09/12/21 10:15 09/12/21 11:14 DC 09/12/21 10:30 Aspirin (Kelly Aspirin) 325 mg 1X ONCE PO 09/12/21 10:30 09/12/21 10:31 DC 09/12/21 10:33 ALLERGIES ALLERGIES: Coded Allergies: metformin (Verified Allergy, Intermediate, 09/12/21) makes him feel sick. ROS Review of System 14 point ROS conducted with pertinent positives noted above in HPI PHYSICAL EXAM General: Alert, Oriented X3, Cooperative, No acute distress HEENT: Atraumatic Lungs: Clear to auscultation Heart: Regular rate Abdomen: Soft, No tenderness Extremities: No edema, Normal pulses Skin: No breakdown, No significant lesion Neuro: Normal speech, Sensation intact Psych/Mental Status: Mental status NL, Mood NL MUSCULOSKELETAL: Osteoarthritic changes both hands VITALS/I&O VITALS/I&O: Vital Signs Date Time Temp Pulse Resp B/P (MAP) Pulse Ox O2 Delivery O2 Flow Rate FiO2 09/12/21 13:41 62 23 164/75 (104) 96 Room Air 09/12/21 09:38 97.3 97.3 LABS Lab: Laboratory Tests Test 09/12/21 10:05 09/12/21 10:22 09/12/21 10:54 White Blood Count 13.9 x10^3/uL (4.0-11.0) H Red Blood Count 5.29 x10^6/uL (4.30-5.70) Hemoglobin 16.2 g/dL (13.0-17.5) Hematocrit 48.7 % (39.0-53.0) Mean Corpuscular Volume 92 fL (79-100) Mean Corpuscular Hemoglobin 31 pg (25-35) Mean Corpuscular Hemoglobin Concent 33 g/dL (31-37) Red Cell Distribution Width 13.2 % (11.5-14.5) Platelet Count 163 x10^3/uL (140-400) Neutrophils (%) (Auto) 79 % (31-73) H Lymphocytes (%) (Auto) 13 % (24-48) L Monocytes (%) (Auto) 6 % (0-9) Eosinophils (%) (Auto) 1 % (0-3) Basophils (%) (Auto) 1 % (0-3) Neutrophils # (Auto) 10.9 x10^3/uL (1.8-7.7) H Lymphocytes # (Auto) 1.8 x10^3/uL (1.0-4.8) Monocytes # (Auto) 0.8 x10^3/uL (0.0-1.1) Eosinophils # (Auto) 0.2 x10^3/uL (0.0-0.7) Basophils # (Auto) 0.1 x10^3/uL (0.0-0.2) Prothrombin Time 11.9 SEC (11.7-14.0) Prothrombin Time INR 0.9 (0.8-1.1) Activated Partial Thromboplast Time 23 SEC (24-38) L Sodium Level 138 mmol/L (136-145) Potassium Level 4.0 mmol/L (3.5-5.1) Chloride Level 103 mmol/L (98-107) Carbon Dioxide Level 24 mmol/L (21-32) Anion Gap 11 (6-14) Blood Urea Nitrogen 22 mg/dL (8-26) Creatinine 1.4 mg/dL (0.7-1.3) H Estimated GFR (Cockcroft-Gault) 51.5 BUN/Creatinine Ratio 16 (6-20) Glucose Level 311 mg/dL (70-99) H Calcium Level 8.7 mg/dL (8.5-10.1) Total Bilirubin 0.6 mg/dL (0.2-1.0) Aspartate Amino Transferase (AST) 14 U/L (15-37) L Alanine Aminotransferase (ALT) 31 U/L (16-63) Alkaline Phosphatase 106 U/L (46-116) Troponin I High Sensitivity 8 ng/L (4-75) MR-Lhi-Z-Type Natriuretic Peptide 339 pg/mL (0-124) H Total Protein 7.0 g/dL (6.4-8.2) Albumin 3.6 g/dL (3.4-5.0) Albumin/Globulin Ratio 1.1 (1.0-1.7) SARS-CoV-2 Antigen (Rapid) Negative (NEGATIVE) Urine Collection Type Unknown Urine Color Yellow Urine Clarity Clear Urine pH 5.0 (<5.0-8.0) Urine Specific [place] 1.025 (1.000-1.030) Urine Protein 100 mg/dL (NEG-TRACE) Urine Glucose (UA) >=1000 mg/dL (NEG) Urine Ketones (Stick) Negative mg/dL (NEG) Urine Blood Negative (NEG) Urine Nitrite Negative (NEG) Urine Bilirubin Negative (NEG) Urine Urobilinogen Dipstick 0.2 mg/dL (0.2 mg/dL) Urine Leukocyte Esterase Negative (NEG) Urine RBC Occ /HPF (0-2) Urine WBC 1-4 /HPF (0-4) Urine Squamous Epithelial Cells Few /LPF Urine Bacteria Few /HPF (0-FEW) Urine Hyaline Casts Few /HPF Urine Mucus Mod /LPF Laboratory Tests 09/12/21 10:05 Laboratory Tests 09/12/21 10:05 ECHOCARDIOGRAM ECHOCARDIOGRAM <Conclusion> The left ventricular systolic function is normal. The Ejection Fraction is 55- 60%. There is normal LV segmental wall motion. DATE: 07/06/20 [id number] 0 HEART CATH HEART CATH Conclusion 1. Two-vessel coronary artery disease. 2. Successful IVUS guided PCI of the proximal LAD with implantation of an Alpine 4.0/23 KRISTIN, post-dilated with 4.0 mm NC balloon at 14 breana. Recommendations ASA 81mg daily Prasugrel 10mg daily High dose statin therapy Consider staged PCI of the RCA (due to CKD) if any significant pain/symptoms. DATE: 03/03/19 1342 CORONARY ANGIOGRAPHY: LM is a large caliber vessel with normal angiographic appearance. LAD is a large caliber vessel with a widely patent proximal stent. LCx is a moderate caliber non-dominant vessel with normal angiographic appearan ce. OM1 is a moderate caliber vessel with normal angiographic appearance. RCA is a moderate caliber vessel with a long proximal to mid 70% stenosis with appearance of prior healed occlusion/spontaneous dissection. The vessel is unchanged in appearance from prior angiography Conclusion 1. Two vessel CAD 2. No significant changes from prior 3. Hypertensive urgency Recommendations Aggressive Medical Therapy DATE: 04/21/19 1605 ASSESSMENT/PLAN ASSESSMENT/PLAN 1. Dizziness, near syncope; resolved 2. CAD s/p PCI/KRISTIN s/p PCI/KRISTIN to LAD 02/2019. RCA noted with long diffuse calcified 70% stenosis at that time. EKG without significant acute changes 3. Hypertension; controlled 4. CKD; Cr stable per review 5. Hyperlipidemia; statin 6. Diabetes, II with hyperglycemia 7. Tobaccoism; discussed/encouraged cessation Recommendations Trend troponin Resume secondary prevention measures including ASA/Effient, statin, low dose BB. Continue with Imdur. Probable outpatient echocardiogram and stress testing Supportive care SAM HYDE MD 09/13/21 1213: CARDIAC CONSULT ASSESSMENT/PLAN ASSESSMENT/PLAN Late entry for 09/12/2021 Patient seen and examined. Patient was chest pain-free. EKG reviewed. No obvious ischemic changes. On telemetry the patient has had intermittent rate related bundle. He is not had any significant symptoms. He really wants to go home and we will plan for an outpatient stress test, echocardiogram and event monitoring. Supportive care. GRACE WEST APRN Sep 12, 2021 14:12 SAM HYDE MD Sep 13, 2021 12:13
--- NOTE | 2021-09-12 14:29 | HP ---
DATE OF SERVICE: 09/12/2021 ADMIT DATE: 09/12/2021 CHIEF COMPLAINT: 15 minutes of dizziness, lightheadedness and near syncope. HISTORY OF PRESENT ILLNESS: The patient is a pleasant 60-year-old male who has 1 cardiac stent. He states he has also had cardiac cath twice though. Basically, he was at work today. 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 He did sit on the ground, did not hit his head, states he felt fine before this all occurred this morning. This episode lasted about 15 minutes. EMS was called. By the time EMS got there, he states he felt fine and refused to go to the hospital. He did go ahead and come on in by private vehicle. I discussed the case with ER physician. We have decided to go to admit the patient for observation and consult his manager quality, Dr. Rosario. PAST MEDICAL HISTORY: CAD with stent, diabetes, hypertension, hyperlipidemia, skin cancer, continued tobacco abuse. ALLERGIES: None. FAMILY HISTORY: Coronary artery disease. 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 He does not drink or take drugs. He smokes. He likes to work on [employer] and he likes to fish. MEDICATIONS: Reviewed, please refer to the MRAD. He is on 8 home medications including Effient 10 daily, atorvastatin 40 a day, fish oil, hydralazine 25 a day, Imdur 30 a day, metoprolol 12.5 b.i.d., aspirin 81 a day and Tums p.r.n. REVIEW OF SYSTEMS: GENERAL: No history of weight change, weakness or fevers. SKIN: No bruising, hair changes or rashes. EYES: No blurred, double or loss of vision. NOSE AND THROAT: No history of nosebleeds, hoarseness or sore throat. HEART: No history of palpitations, chest pain or shortness of breath on exertion. LUNGS: Denies cough, hemoptysis, wheezing or shortness of breath. GASTROINTESTINAL: Denies changes in appetite, nausea, vomiting, diarrhea or constipation. GENITOURINARY: No history of frequency, urgency, hesitancy or nocturia. NEUROLOGIC: Denies history of numbness, tingling, tremor or weakness. PSYCHIATRIC: No history of panic, anxiety or depression. ENDOCRINE: No history of heat or cold intolerance, polyuria or polydipsia. EXTREMITIES: Denies muscle weakness, joint pain, pain on walking or stiffness. PHYSICAL EXAMINATION: VITALS: Within normal limits and are stable. GENERAL: No apparent distress. Alert and oriented. HEENT: Normal cephalic atraumatic, external auditory canals are patent. EYES: Extraocular muscles are intact, pupils are equally round and reactive to light and accommodation. MUSCULOSKELETAL: Well developed, well nourished, good range of motion. ENDOCRINE: No thyromegaly was palpated. LYMPHATICS: No cervical chain or axillary nodes were noted. HEMATOPOIETIC: No bruising. NECK: Supple, no JVD, no thyromegaly was noted. LUNGS: Clear to auscultation in all lung lopez without rhonchi or wheezing. HEART: RRR, S1, S2 present. Peripheral pulses intact, no obvious murmurs were noted. ABDOMEN: Soft, nontender. Positive bowel sounds. No organomegaly, normal bowel sounds. EXTREMITIES: Without any cyanosis, clubbing, or edema. Pedal pulses intact, Homans sign is negative. NEUROLOGIC: Normal speech, normal tone. A and O x 3, moves all extremities, no obvious focal deficits. PSYCHIATRIC: Normal affect, normal mood. Stable. SKIN: No ulcerations or rashes, good skin turgor, no jaundice. VASCULAR: Good capillary refill, neurovascular bundle appears to be intact. LABORATORY DATA: Troponin is 8. BNP slightly high at 339. Electrolytes are normal. White count slightly high at 13.9, INR is 0.9. Urinalysis negative. COVID testing is negative. DIAGNOSTIC DATA: Chest x-ray shows no acute disease. ASSESSMENT AND PLAN: Diaphoresis, nausea, dizziness, near syncope, suspect possible arrhythmia. The patient is being admitted. We will keep him on a parachutist/combatant diver qualified. Consult Cardiology. Home medications. Serial cardiac enzymes. Serial EKGs. Check a lipid panel. Pia Lees. Trend his electrolytes and blood counts. Full code. Await further Cardiology input. ROSALIND DR: Diamond TID: [id number]
[2021-09-12 14:30] VITALS: BP 153/70
[2021-09-12] MEDS ORDERED: METO25TA4 PO (14:49)
--- NOTE | 2021-09-13 06:37 | EKG ---
[facility] [address] [place] [address] Test Date: 2021-09-12 Test Time: 10:49:28 Pat Name: JONY RANDALL Department: Room: [facility] Gender: M Animal Sitter: : 1960 Requested By: CONRAD FLYNN Order Number: [id number] Reading MD: Tre Rosario MD Measurements Intervals [place] Rate: 54 P: 48 LA: 150 QRS: 43 QRSD: 100 T: 91 QT: 462 QTc: 440 Interpretive Statements SINUS RHYTHM CONSIDER ANTERIOR ISCHEMIA Electronically Signed On 09-20-2021 8:29:50 CHARGING BOARD OPERATOR by Tre Rosario MD
--- NOTE | 2021-09-13 17:41 | NUR ---
IP: Attempted to contact pt concerning final covid results. No answer, left a voicemail to return the call. Addendum: 09/13/21 at 1747 by GREGORY GUTHRIE RN Pt returned my call. Informed him of negative covid test. he verbalized understanding.
== END 2021-09-12 18:56 | disposition home or self-care (01) ==
LOC: ER 09:30 → ED HOLD 11:33 → 6 SOUTH 12:34
PROVIDERS: ADMIT Internal Medicine; ATTEND Internal Medicine
DX: R55 Syncope and collapse (principal); Z20.822 Contact with and (suspected) exposure to COVID-19; E78.00 Pure hypercholesterolemia, unspecified; E78.5 Hyperlipidemia, unspecified; I25.10 Atherosclerotic heart disease of native coronary artery without angina pectoris; E11.22 Type 2 diabetes mellitus with diabetic chronic kidney disease; I12.9 Hypertensive chronic kidney disease with stage 1 through stage 4 chronic kidney disease, or unspecified chronic kidney disease; N18.9 Chronic kidney disease, unspecified; R53.1 Weakness; R42 Dizziness and giddiness; F17.200 Nicotine dependence, unspecified, uncomplicated; Z95.5 Presence of coronary angioplasty implant and graft; Z82.49 Family history of ischemic heart disease and other diseases of the circulatory system; Z85.828 Personal history of other malignant neoplasm of skin
CPT/HCPCS: 36415; 71045; 80053; 81001; 83880; 84484; 85025; 85610; 85730; 87426; 93005; 96360; 99285; G0378; J7030; U0003; U0005; G0379

== ENCOUNTER → 2021-10-03 | Outpatient (CLI) | payer OTHER ==
[2021-09-12 14:30] VITALS: BP 153/70
--- NOTE | 2021-10-03 16:32 | CARD ---
MR#: [id number] Date of Study: 10/03/2021 Ordering Physician: SAM HYDE, Referring Physician: SAM HYDE, Tech: Satish العراقي [facility] APPROVED REPORT EXAM: Two-dimensional and M-mode echocardiogram with Doppler and color Doppler. Other Information Quality : AverageHR: 64bpm Rhythm : NSR INDICATION Cardiac Disease: CAD 2D DIMENSIONS Left Atrium(2D)4.5 (1.6-4.0cm)IVSd1.7 (0.7-1.1cm) Aortic Root(2D)3.5 (2.0-3.7cm)LVDd4.8 (3.9-5.9cm) LVOT Diameter2.1 (1.8-2.4cm)PWd1.6 (0.7-1.1cm) LA Rymamf23 (18-58mL)LVDs2.5 (2.5-4.0cm) FS (%) 49.0 %SV88.2 ml Aortic Valve AoV Peak Marko.130.2cm/sAoV VTI29.5cm AO Peak GR.6.8mmHgLVOT Peak Marko.85.8cm/s LVOT VTI 22.09cmAO Mean GR.4mmHg KRISTIN (VMAX)1.33zw2JHU (VTI)2.62cm2 Mitral Valve MV E Pvxycphn31.4cm/sMV DECEL STBU649bz MV A Boupimqu58.2cm/sMV TPY468kc E/A Ratio0.6MVA (PHT)2.06cm2 TDI E/Lateral E'6.9E/Medial E'10.1 Pulmonary Valve PV Peak Vrhwaxhs478.7cm/sPV Peak Grad.4mmHg Tricuspid Valve TR P. Esunqwdf905cb/sTR Peak Gr.20mmHg Pulmonary Vein S1 Nghqrctz43.4cm/sD2 Bpaeohgd13.2cm/s LEFT VENTRICLE The left ventricle is normal size. There is mild to moderate concentric left ventricular hypertrophy. The left ventricular systolic function is normal and the ejection fraction is within normal range. L V ejection fraction is 55 to 60%. There is normal LV segmental wall motion. Transmitral Doppler flow pattern is Grade I-abnormal relaxation pattern. No left ventricle thrombus noted on this study. There is no ventricular septal defect visualized. There is no left ventricular aneurysm. There is no mass noted in the left ventricle. RIGHT VENTRICLE The right ventricle is normal size. There is normal right ventricular wall thickness. The right ventr icular systolic function is normal. ATRIA The left atrium is mildy dilated. The right atrium size is normal. The interatrial septum is intact w ith no evidence for an atrial septal defect or patent foramen ovale as noted on 2-D or Doppler imagin g. AORTIC VALVE The aortic valve is normal in structure and function. The aortic valve is trileaflet. Doppler and Col or Flow revealed no significant aortic regurgitation. There is no significant aortic valvular stenosi s. There is no aortic valvular vegetation. MITRAL VALVE The mitral valve is thickened but opens well. There is no evidence of mitral valve prolapse. There is no mitral valve stenosis. Doppler and Color-flow revealed trace mitral regurgitation. TRICUSPID VALVE The tricuspid valve is normal in structure and function. Doppler and Color Flow revealed trace tricus pid regurgitation. There is no tricuspid valve prolapse or vegetation. There is no tricuspid valve st enosis. PULMONIC VALVE The pulmonary valve is normal in structure and function. Doppler and Color Flow revealed no pulmonic valvular regurgitation. There is no pulmonic valvular stenosis. GREAT VESSELS The aortic root is normal in size. The ascending aorta is normal in size. The pulmonary artery is nor mal. The IVC is normal in size and collapses >50% with inspiration. PERICARDIAL EFFUSION There is no pleural effusion. There is no evidence of significant pericardial effusion. Critical Notification Critical Value: No <Conclusion> The left ventricle is normal size. The left ventricular systolic function is normal and the ejection fraction is within normal range. LV ejection fraction is 55 to 60%. There is mild to moderate concentric left ventricular hypertrophy. Doppler and Color Flow revealed no significant aortic regurgitation. There is no significant aortic valvular stenosis. Doppler and Color-flow revealed trace mitral regurgitation. Doppler and Color Flow revealed trace tricuspid regurgitation. Signed by : Srikanth Rubio MD Electronically Approved : 10/03/2021 16:32:43
--- NOTE | 2021-10-04 16:35 | RAD ---
MR#: [id number] Date of Study: 10/03/2021 Ordering Physician: SAM HYDE, Referring Physician: CANDIDA PRO Tech: JEFF Bishop, ARRT (R) (N) APPROVED REPORT Test Type: Exercise Stress Nurse/Tech: Dieter Coto RN Test Indications: CAD Cardiac History: CAD, HTN, PTCA, See EMR. Medications: See EMR. Medical History: Smoker, See EMR. Resting ECG: SB Resting Heart Rate: 49 bpm Resting Blood Pressure: 184/73mmHg Pretest Chest Pain: No chest pain Nurse/Tech Notes Lungs diminished throughout, heart tones regular. Consent: The procedure was explained to the patient in lay terms. Informed consent was witnessed. J Luis eout was entered into opvizor. History and Stress Test performed by RT Michelle (John) (N) Stress Symptoms Dyspnea. ST depression in leads: II, III, AVF, V4-V6. ST elevation in leads: AVR, AVL, V1-V3. Changes resolved by the end of rest. POST EXERCISE Reason for Termination: Reached target heart rate Target HR: Yes Max HR: 147 bpm 92% of Maximum Predicted HR: 159 bpm Exercise duration: 4:30 min:sec, 2 Stage Exercise capacity: 10.0METs Max Blood Pressure: 209/86mmHg Blood Pressure response to exercise: Normal blood pressure response during stress. Heart Rate response to exercise: WNL Chest Pain: No. Arrhythmia: No. INTERPRETATION Stress EKG Conclusion: The resting EKG showed a sinus bradycardia, nonspecific ST-T wave changes and LVH. The stress EKG showed nonspecific ST-T wave changes that are not diagnostic of ischemia. No EKG evidence of stress-induced ischemia. Imaging Protocol IMAGE PROTOCOL: Rest Tc-99m/stress Tc-99m 1 day Rest: Stress: Viability: Radiopharm.Tc99m EhowlolzwXi32m Sestamibi Rles54yRl 30mCi Img Date 10/03/2021 10/03/2021 Inj-Img Vgbl39akx. 60min. Rest Admin Site:IV - Left HandAdministrator:Edward Barreto, RT (R)(N) Stress Admin Site: IV - Left HandAdministrator: RT Michelle (R)(N) STRESS DATA End Diast. Vol.78.0mlLVEDV index BSA41.0ml End Syst. Vol.26.0mlLVESV index BSA14.0ml Myocardial Fywi322.0gEject. Eqvxxicb80.0% Stress Scores Regional WT1.00Summed WT4.00 Regional WM0.00Summed WM3.00 LV Perfusion The stress scans showed no significant defects. The rest scans showed no significant defects. Nuclear imaging shows no reversible ischemia or infarct. Wall Motion Left ventricular systolic function is normal with an ejection fraction of 72%. LV Perf. Quant 17 Seg. SSS0.00 17 Seg. SRS0.00 17 Seg. SDS0.00 Stress Defect Extent (% LAD)0.00Rest Defect Extent (% LAD)0.00Rev. Defect Extent (% LAD)0.00 Stress Defect Extent (% LCX) 0.00Rest Defect Extent (% LCX)0.00Rev. Defect Extent (% LCX)0.00 Stress Defect Extent (% RCA)0.00Rest Defect Extent (% RCA)0.00Rev. Defect Extent (% RCA)0.00 Stress Defect Extent (% KIMMY)0.00Rest Defect Extent (% KIMMY)0.00Rev. Defect Extent (% KIMMY)0.00 Conclusion 1. Reasonable exercise tolerance with the patient walking for 4 minutes and 30 seconds on a Randal pro tocol. 2. No chest pain with exertion. 3. Hypertensive response to exertion. 4. Abnormal baseline EKG. No diagnostic ischemic EKG changes with exertion. 5. Nuclear imaging shows no reversible ischemia or infarct. 6. Intact LV systolic function with ejection fraction of 72%. 7. Moderately low risk treadmill nuclear stress test. Signed by : Srikanth Rubio MD Electronically Approved : 10/04/2021 16:34:36
== END ==
LOC: NM 09:21
PROVIDERS: ATTEND Internal Medicine Cardiovascular Disease
DX: I51.7 Cardiomegaly (principal); R94.31 Abnormal electrocardiogram [ECG] [EKG]; I25.10 Atherosclerotic heart disease of native coronary artery without angina pectoris
CPT/HCPCS: 78452; 93017; 93306; A9500; C8929